=== PATIENT | male | born 1975 | race African-American/Black ===

== ENCOUNTER 2018-08-30 21:40 | Emergency (ER) | payer OTHER ==
[~2018-08-30] VITALS: Ht 180.3 cm; Wt 87.1 kg
[~2018-08-30 21:40] MED LIST: ACYCLOVIR800 MG ORAL; CLONAZEPAM2 MG PO; COMPLERA TABLE1 EACH ORAL; NORCO 5-325 TA1 EACH ORAL; OFLOXACIN5 ML RIGHT EYE
[2018-08-30] MEDS ORDERED: LEXAPRO20 MG ORAL (21:47)
--- NOTE | 2018-08-30 21:49 | NUR ---
ED Nurse Note: Pt from home, AAOx4, ambulatory, c/o tingling/numbness in hands and hips with tension headache 8/10 for a few weeks. Will assess and carry out ER MD's orders.
[2018-08-30 22:12] VITALS: BP 132/94
[2018-08-30 22:58] LABS: BASOPHILS % (AUTO) 0.9 % (0.0-2.0); EOSINOPHILS % (AUTO) 2.8 % (0.0-3.0); HEMATOCRIT 39.9 % (42.0-52.0); HEMOGLOBIN 13.4 G/DL (14.2-18.0); LYMPHOCYTES % (AUTO) 52.8 % (20.0-45.0); MEAN CORPUSCULAR VOLUME 87 FL (80-99); MONOCYTES % (AUTO) 9.9 % (1.0-10.0); NEUTROPHILS % (AUTO) 33.5 % (45.0-75.0); PLATELET COUNT 158 K/UL (150-450); RED BLOOD COUNT 4.58 M/UL (4.70-6.10); RED CELL DISTRIBUTION WIDTH 11.2 % (11.6-14.8); WHITE BLOOD COUNT 4.2 K/UL (4.8-10.8)
[2018-08-30 23:05] LABS: ANION GAP 5 mmol/L (5-15); BLOOD UREA NITROGEN 15 mg/dL (7-18); CALCIUM 9.2 MG/DL (8.5-10.1); CARBON DIOXIDE 28 MMOL/L (21-32); CHLORIDE 102 MMOL/L (98-107); CREATININE 1.2 MG/DL (0.55-1.30); POTASSIUM 3.7 MMOL/L (3.5-5.1); SODIUM 135 MMOL/L (136-145)
--- NOTE | 2018-08-30 23:44 | Emergency Room Report ---
History of Present Illness General Chief Complaint: Dizziness Source: Patient Present Illness HPI This is a 43-year-old male with a history of HIV and anxiety. He presents with chief complaint of numbness throughout his whole body. He has pressure numbness to the back of his head. Numbness to his arms, legs. There is been on and off for 2 weeks. Denies feeling anxious. No fever chills but no trauma. Nothing made it better. Nothing made it worse. Denies any other complaint. Allergies: Coded Allergies: NO KNOWN DRUG ALLERGIES (Verified Allergy, Unknown, 04/19/15) Patient History Past Medical History: see triage record, old chart reviewed Past Surgical History: none Pertinent Family History: none Social History: Denies: smoking Immunizations: other Reviewed Nursing Documentation: PMH: Agreed; PSxH: Agreed Nursing Documentation-PMH Past Medical History: No History, Except For Hx Gastrointestinal Problems: No - Colorectal wart removal in 2011 Hx Neurological Problems: No Review of Systems Eye: Denies: eye pain, blurred vision ENT: Denies: ear pain, nose congestion, throat swelling Respiratory: Denies: cough, shortness of breath Cardiovascular: Denies: chest pain, palpitations Gastrointestinal: Denies: abdominal pain, diarrhea, nausea, vomiting Musculoskeletal: Denies: back pain, joint pain Skin: Denies: rash Neurological: Reports: paresthesia; Denies: headache, numbness Endocrine: Denies: increased thirst, increased urine Hematologic/Lymphatic: Denies: easy bruising All Other Systems: negative except mentioned in HPI Physical Exam Vital Signs Date Time Temp Pulse Resp B/P (MAP) Pulse Ox O2 Delivery O2 Flow Rate FiO2 08/30/18 21:41 98.2 70 14 127/85 (99) 97 Room Air Vitals normal Sp02 EP Interpretation: reviewed, normal General Appearance: well appearing, no apparent distress, alert Head: normocephalic, atraumatic Eyes: bilateral eye PERRL, bilateral eye EOMI ENT: hearing grossly normal, normal pharynx Neck: full range of motion, supple, no meningismus Respiratory: chest non-tender, lungs clear, normal breath sounds Cardiovascular #1: regular rate, rhythm, no murmur Gastrointestinal: normal bowel sounds, non tender, no mass, no organomegaly, no bruit, non-distended Musculoskeletal: back normal, gait/station normal, normal range of motion Psychiatric: mood/affect normal Skin: warm/dry Medical Decision Making Diagnostic Impression: Primary Impression: Dizziness of unknown cause Additional Impression: Paresthesia ER Course Presents with paresthesia. This may be anxiety related. This may be secondary to his HIV medication or HIV itself. He looks well. Will discharge home. No evidence of TIA or CVA. Last Vital Signs Date Time Temp Pulse Resp B/P (MAP) Pulse Ox O2 Delivery O2 Flow Rate FiO2 08/30/18 22:12 98.2 63 14 132/94 100 Room Air Status: unchanged Disposition: HOME, SELF-CARE Condition: Stable Referrals: NON PHYSICIAN (PCP) Additional Instructions: Aloe up with your doctor in 7 days. You may need a referral to see a neurologist if not better. Return if worse. Kris Hagen MD Aug 30, 2018 23:44
--- NOTE | 2018-08-30 23:51 | NUR ---
ED Nurse Note: Pt cleared by health care Provider for discharge. DC instructions/prescription was given and explained to pt and verbalized understanding of teachings. All medical deviecs such as ID band removed. Pt is AAO x4, ambulatory and left with all personal belongings.
== END 2018-08-30 23:51 | disposition home or self-care (01) ==
LOC: EMR 23:00
DX: R20.2 Paresthesia of skin (principal); R42 Dizziness and giddiness; B20 Human immunodeficiency virus [HIV] disease; F41.9 Anxiety disorder, unspecified
CPT/HCPCS: 36415; 80048; 85025; 99283

== ENCOUNTER 2019-05-02 08:57 | Emergency (ER) | payer OTHER ==
[~2019-05-02] VITALS: Ht 180.3 cm; Wt 86.2 kg
[~2019-05-02 08:57] MED LIST changes: +LEXAPRO20 MG ORAL
--- NOTE | 2019-05-02 09:04 | NUR ---
ED Nurse Note: Pt ambulated to ed c/o chest pain and cough since thursday. per pt had x2 vomting episodes since Thursday. Pt was provided mask, NAD noted, vss. pt placed in gown. pt voices concern for possible pneumonia.
[2019-05-02 09:06] VITALS: BP 118/72
[2019-05-02] MEDS ORDERED: Albuterol ud Inhalation HHN ONE (09:15)
--- NOTE | 2019-05-02 09:16 | NUR ---
ED Nurse Note: FLU SWAB OBTAINED; SENT TO LAB
--- NOTE | 2019-05-02 09:28 | Emergency Room Report ---
History of Present Illness General Chief Complaint: Upper Respiratory Illness Source: Patient Present Illness HPI Patient is a 43-year-old male past medical history of HIV on antiretrovirals states that he has an undetectable viral load and CD4 count is normal as well as pneumonia in the past who presents to the ER complaining of cough and chest wall pain for the past 2 days. He denies any fever or chills. He denies any shortness of breath. He denies any recent travel or sick contacts. Patient states that he sometimes smokes cigarettes. No family history of early cardiovascular disease. No pain when not coughing. Denies any rash or altered mental status. Denies any abdominal pain, nausea or vomiting. Patient states this feels like when he had pneumonia. Allergies: Coded Allergies: NO KNOWN DRUG ALLERGIES (Verified Allergy, Unknown, 04/19/15) Patient History Past Medical History: other - HIV Social History: Reports: smoking Reviewed Nursing Documentation: PSxH: Agreed Nursing Documentation-PMH Past Medical History: No History, Except For Hx Gastrointestinal Problems: No - Colorectal wart removal in 2011 Hx Neurological Problems: No Review of Systems All Other Systems: negative except mentioned in HPI Physical Exam Vital Signs Date Time Temp Pulse Resp B/P (MAP) Pulse Ox O2 Delivery O2 Flow Rate FiO2 05/02/19 08:59 99.0 105 20 118/72 (87) 96 Room Air Sp02 EP Interpretation: reviewed, normal General Appearance: no apparent distress, alert, GCS 15, non-toxic Head: normocephalic, atraumatic Eyes: bilateral eye normal inspection, bilateral eye PERRL ENT: hearing grossly normal, normal pharynx, no angioedema, normal voice Neck: full range of motion, supple/symm/no masses Respiratory: chest non-tender, speaking full sentences, wheezing - scattered Cardiovascular #1: regular rate, rhythm, no edema Cardiovascular #2: 2+ radial (R), 2+ radial (L) Gastrointestinal: normal bowel sounds, non tender, soft, non-distended, no guarding, no rebound Rectal: deferred Genitourinary: normal inspection, no CVA tenderness Musculoskeletal: back normal, normal range of motion, calf tenderness, gait/ station normal, non-tender Neurologic: alert, motor strength/tone normal, oriented x3, sensory intact, responsive, speech normal Psychiatric: judgement/insight normal, memory normal, mood/affect normal, no suicidal/homicidal ideation Reflexes: 3+ bicep (R), 3+ bicep (L), 3+ tricep (R), 3+ tricep (L), 3+ knee (R) , 3+ knee (L) Lymphatic: no adenopathy Medical Decision Making Diagnostic Impression: Primary Impression: Bronchopneumonia ER Course Patient's vital signs are stable. He is in no acute respiratory distress. Patient given albuterol nebulizer treatment as well as Motrin. Influenza negative. Patient has history of HIV. Patient given prescription for Motrin, albuterol and azithromycin. After discussing risks and benefits of further diagnostics, treatment plans, as well as indications for and risks of admission , the patient is agreeable to being discharged home. I have explained that their evaluation and treatment in the emergency department today is an important step towards them achieving better health but that their evaluation today is not intended to replace further evaluation and treatment by a physician in their local clinic. I have explained that while the current findings suggest no immediate life threatening emergency they will require further evaluation and treatment by a physician of their choice in their area. They understand that it will be necessary for them to review the final reports of their ED visit with their clinic physician. We have reviewed indications for return to the Emergency Department. I have explained that additional time may need to pass and/or additional testing as an outpatient may be necessary before a definitive diagnosis can be made. They tell me they are willing to follow up as instructed within the timeframe I recommend. They appear to understand what we discussed. Additionally they understand that if they are unable to be seen by an outpatient physician they are welcome, and in fact should, return to the Emergency Department for a repeat evaluation. The patient is stable at time of discharge. EKG Diagnostic Results EKG Time: 09:11 EP Interpretation: Tammi Goldsmith MD Rate: normal Rhythm: NSR ST Segments: no acute changes ASA given to the pt in ED: No Last Vital Signs Date Time Temp Pulse Resp B/P (MAP) Pulse Ox O2 Delivery O2 Flow Rate FiO2 05/02/19 09:06 99.0 105 20 118/72 96 Room Air Disposition: HOME, SELF-CARE Condition: Stable Scripts Azithromycin* (ZITHROMAX*) 250 Mg Tablet 250 MG ORAL DAILY, #6 TAB 0 Refills Take two tables once daily for 1 day, then one tablet once daily for 4 days. Prov: Tammi Goldsmith M.D. 05/02/19 Ibuprofen* (MOTRIN*) 600 Mg Tablet 600 MG ORAL Q8H PRN for For Pain, #30 TAB 0 Refills Prov: Tammi Goldsmith M.D. 05/02/19 Albuterol Sulfate* (ALBUTEROL SULFATE MDI*) 8.5 Gm Hfa.aer.ad 2 PUFF INH Q4H PRN for cough/wheezing, #1 EA 0 Refills Prov: Tammi Goldsmith M.D. 05/02/19 Tammi Goldsmith M.D. May 02, 2019 09:28
--- NOTE | 2019-05-02 09:32 | NUR ---
ED Nurse Note: XRAY AT BEDSIDE
--- NOTE | 2019-05-02 09:38 | NUR ---
ED Nurse Note: RT AT BEDSIDE
[2019-05-02] MEDS ORDERED: ZITHROMAX250 MG ORAL (10:31)
[2019-05-02] MEDS ORDERED: ALBUTEROL SULF8.5 GM INH (10:31)
[2019-05-02] MEDS ORDERED: IBUPROFEN600 MG ORAL (10:31)
[2019-05-02 10:45] VITALS: BP 121/79
--- NOTE | 2019-05-02 10:46 | NUR ---
ER DISCHARGE NOTE: Patient is cleared to be discharged per ERMD, pt is aox4, on room air, with stable vital signs. pt was given dc and prescription instructions, pt was able to verbalize understanding, pt id band removed. pt is able to ambulate with steady gait. pt took all belongings.
--- NOTE | 2019-05-02 13:20 | Diagnostic Imaging Report ---
Indication: Dyspnea Comparison: 05/11/2005 A single view chest radiograph was obtained. Findings: Questionable small infiltrate in the left perihilar region. Heart size is normal. Costophrenic angles are sharp. Bones are unremarkable. IMPRESSION: Questionable small left perihilar infiltrate.
== END 2019-05-02 10:43 | disposition home or self-care (01) ==
LOC: EMR 09:15
DX: J18.0 Bronchopneumonia, unspecified organism (principal); B20 Human immunodeficiency virus [HIV] disease; F17.200 Nicotine dependence, unspecified, uncomplicated
CPT/HCPCS: 71045; 86710; 93005; Z7502; 99284

== ENCOUNTER 2019-05-13 07:44 | Emergency (ER) | payer OTHER ==
[~2019-05-13] VITALS: Ht 180.3 cm; Wt 86.2 kg
[~2019-05-13 07:44] MED LIST changes: +ALBUTEROL SULF8.5 GM INH; +IBUPROFEN600 MG ORAL; +ZITHROMAX250 MG ORAL
[2019-05-13 07:54] VITALS: BP 137/78
--- NOTE | 2019-05-13 08:05 | NUR ---
ED Nurse Note: PT. AAOX4. AMBULATORY. WALKED IN TO ER FROM HOME. PER PT. HE HAS BEEN HVAING FLANK PAIN BUT DENIES HEMATURIA. PT. DENIES HAVING DIFFICULTY URINATING.
[2019-05-13] MEDS ORDERED: Methocarbamol 750mg tab ORAL ONE (08:15)
[2019-05-13] MEDS ORDERED: Ketorolac 30mg Inj IM ONE (08:15)
[2019-05-13 08:30] LABS: APPEARANCE,URINE CLEAR; BILIRUBIN, URINE NEGATIVE (NEGATIVE); GLUCOSE, URINE (UA) NEGATIVE (NEGATIVE); KETONES,URINE 1+ (NEGATIVE); LEUKOCYTE ESTERASE ,URINE 1+ (NEGATIVE); NITRITE,URINE NEGATIVE (NEGATIVE); PH,URINE 5 (4.5-8.0); PROTEIN,URINE 1+ (NEGATIVE); UROBILINOGEN,URINE NORMAL MG/DL (0.0-1.0)
[2019-05-13 08:41] LABS: COLOR,URINE YELLOW
--- NOTE | 2019-05-13 08:53 | Emergency Room Report ---
History of Present Illness General Chief Complaint: Pain Source: Patient Present Illness HPI 43-year-old male presents ED for evaluation. Complaining of left lower back pain for last 4 days. Dull, 9 out of 10, nonradiating. Denies dysuria or hematuria. Denies fevers or chills. Denies nausea or vomiting. States he recently completed a prescription of antibiotics for pneumonia. Denies any cough. States he was moving some heavy furniture the other day. No other aggravating relieving factors. Denies any other associated symptoms Allergies: Coded Allergies: NO KNOWN DRUG ALLERGIES (Verified Allergy, Unknown, 04/19/15) Patient History Past Medical History: none Past Surgical History: none Pertinent Family History: none Social History: Denies: smoking, alcohol use, drug use Immunizations: UTD Reviewed Nursing Documentation: PMH: Agreed; PSxH: Agreed Nursing Documentation-PMH Past Medical History: No History, Except For Hx Gastrointestinal Problems: No - Colorectal wart removal in 2011 Hx Neurological Problems: No Review of Systems All Other Systems: negative except mentioned in HPI Physical Exam Vital Signs Date Time Temp Pulse Resp B/P (MAP) Pulse Ox O2 Delivery O2 Flow Rate FiO2 05/13/19 07:54 98.2 84 17 137/78 99 Room Air Sp02 EP Interpretation: reviewed, normal General Appearance: no apparent distress, alert, GCS 15, non-toxic Head: normocephalic, atraumatic Eyes: bilateral eye normal inspection, bilateral eye PERRL ENT: hearing grossly normal, normal pharynx, no angioedema, normal voice Neck: full range of motion, supple/symm/no masses Respiratory: chest non-tender, lungs clear, normal breath sounds, speaking full sentences Cardiovascular #1: regular rate, rhythm, no edema Cardiovascular #2: 2+ carotid (R), 2+ carotid (L), 2+ radial (R), 2+ radial (L) , 2+ dorsalis pedis (R), 2+ dorsalis pedis (L) Gastrointestinal: normal bowel sounds, non tender, soft, non-distended, no guarding, no rebound Rectal: deferred Genitourinary: normal inspection, CVA tenderness (L) Musculoskeletal: normal range of motion, gait/station normal, tender Neurologic: alert, motor strength/tone normal, oriented x3, sensory intact, responsive, speech normal Psychiatric: judgement/insight normal, memory normal, mood/affect normal, no suicidal/homicidal ideation Reflexes: 3+ bicep (R), 3+ bicep (L), 3+ tricep (R), 3+ tricep (L), 3+ knee (R) , 3+ knee (L) Skin: no rash Lymphatic: no adenopathy Medical Decision Making Diagnostic Impression: Primary Impression: Cystitis Additional Impression: Back pain Qualified Codes: M54.5 - Low back pain ER Course Hospital Course 43-year-old M presents to ED with L flank pain Differential diagnosis includes- muscle strain, kidney stone, pyelonephritis Clinical course Patient placed on stretcher. After initial history and physical I ordered UA, pain medications and CT scan Labs - UA - hematuria, some bacteria CT scan shows no evidence of kidney stone. no hydronephrosis. evidence of cystitis Upon reassessment, patient states pain has improved. I discussed findings with patient. Pain is likely muscular. However patient does have evidence of cystitis. Some bacteria and blood in urine with findings on CT. Will discharge home on antibiotics. Safe for discharge with close outpatient follow- up. States he has a PMD I feel this is a highly complex case requiring extensive working including EKG/ Rhythm strip, Xray/CT/US, Blood/urine lab work, repeat exams while in ED, and administration of strong opiates/narcotics for pain control, admission to hospital or close patient follow up. Diagnosis - cystitis, back pain Stable and discharged to home with Rx Motrin, Robaxin, Lidoderm, Keflex. Followup with PMD. Return to ED if symptoms recur or worsen Labs Test 05/13/19 08:08 Urine Color Yellow Urine Appearance Clear Urine pH 5 (4.5-8.0) Urine Specific [place] 1.025 (1.005-1.035) Urine Protein 1+ (NEGATIVE) Urine Glucose (UA) Negative (NEGATIVE) Urine Ketones 1+ (NEGATIVE) Urine Blood 4+ (NEGATIVE) Urine Nitrite Negative (NEGATIVE) Urine Bilirubin Negative (NEGATIVE) Urine Urobilinogen Normal MG/DL (0.0-1.0) Urine Leukocyte Esterase 1+ (NEGATIVE) Urine RBC 5-10 /HPF (0 - 0) Urine WBC 5-10 /HPF (0 - 0) Urine Squamous Epithelial Cells Few /LPF (NONE/OCC) Urine Bacteria Occasional /HPF (NONE) Urine Mucus Few /LPF (NONE/OCC) CT/MRI/US Diagnostic Results CT/MRI/US Diagnostic Results : Imaging Test Ordered: CT A/P Impression Findings: No renal or ureteral calculi, hydronephrosis, or hydroureter demonstrated. Lack of IV contrast limits assessment of the renal parenchyma. The left kidney demonstrates a lower pole low-attenuation lesion which is too small to characterize, best appreciated on the coronal images.. There is equivocal minimal bladder wall thickening, but this probably an artifact of under distention. Lack of IV contrast limits assessment of the other solid organs. The liver, gallbladder, bile ducts, pancreas, spleen, adrenals are unremarkable. There are 2 accessory splenules incidentally noted. No retroperitoneal or mesenteric mass or adenopathy. No pelvic mass or adenopathy. No evidence of colonic diverticulosis or diverticulitis. The appendix is normal. No small bowel distention. There is a tiny umbilical hernia contains only fat. The distal esophagus, stomach, duodenum are unremarkable. Included lung bases are clear. The bones are unremarkable. Impression: Equivocally minimally thick-walled bladder, probably an artifact of under distention, but could indicate mild cystitis changes Otherwise, no evidence of urinary stone disease, hydronephrosis, hydroureter, or other findings to suggest etiology stated clinical history of hematuria Subcentimeter low-attenuation lower pole left renal lesion, too small to characterize, most likely benign simple cortical cysts. No further follow-up necessary Incidental findings as noted, including tiny fat-containing umbilical hernia, accessory splenules The CT scanner at [facility] is accredited by the [employer] and the scans are performed using protocols designed to limit radiation exposure to as low as reasonably achievable to attain images of sufficient resolution adequate for diagnostic evaluation. Last Vital Signs Date Time Temp Pulse Resp B/P (MAP) Pulse Ox O2 Delivery O2 Flow Rate FiO2 05/13/19 07:54 98.2 84 17 137/78 (97) 99 05/13/19 07:54 Room Air Status: improved Disposition: HOME, SELF-CARE Condition: Stable Scripts Cephalexin* (KEFLEX*) 500 Mg Capsule 500 MG ORAL EVERY 6 HOURS for 7 Days, #28 CAP Prov: Brandin Berkowitz MD 05/13/19 Lidocaine Patch* (Lidoderm Patch*) 1 Each Adh..patch 1 PATCH TOPIC DAILY, #7 PATCH 0 Refills Patch(es) may remain in place for up to 12 hours in any 24-hour period. Prov: Brandin Berkowitz MD 05/13/19 Methocarbamol* (ROBAXIN-750*) 750 Mg Tablet 750 MG PO TID, #21 TAB 0 Refills Prov: Brandin Berkowitz MD 05/13/19 Ibuprofen* (MOTRIN*) 600 Mg Tablet 600 MG ORAL Q8H PRN for For Pain, #30 TAB 0 Refills Prov: Brandin Berkowitz MD 05/13/19 Referrals: NON PHYSICIAN (PCP) Brandin Berkowitz MD May 13, 2019 08:53
--- NOTE | 2019-05-13 08:55 | NUR ---
ED Nurse Note: pt went to CT
--- NOTE | 2019-05-13 09:15 | NUR ---
ED Nurse Note: pt. came back from CT and stated his pain is much better
--- NOTE | 2019-05-13 10:01 | Diagnostic Imaging Report ---
. Indication: Flank pain and hematuria Technique: Spiral acquisitions obtained through the abdomen and pelvis. No oral or IV contrast utilized, per urinary stone protocol. Multiplanar reconstructions were generated. Total dose length product 330 mGycm. CTDIvol(s) 6 mGy. Dose reduction achieved using automated exposure control Comparison: none Findings: No renal or ureteral calculi, hydronephrosis, or hydroureter demonstrated. Lack of IV contrast limits assessment of the renal parenchyma. The left kidney demonstrates a lower pole low-attenuation lesion which is too small to characterize, best appreciated on the coronal images.. There is equivocal minimal bladder wall thickening, but this probably an artifact of under distention. Lack of IV contrast limits assessment of the other solid organs. The liver, gallbladder, bile ducts, pancreas, spleen, adrenals are unremarkable. There are 2 accessory splenules incidentally noted. No retroperitoneal or mesenteric mass or adenopathy. No pelvic mass or adenopathy. No evidence of colonic diverticulosis or diverticulitis. The appendix is normal. No small bowel distention. There is a tiny umbilical hernia contains only fat. The distal esophagus, stomach, duodenum are unremarkable. Included lung bases are clear. The bones are unremarkable. Impression: Equivocally minimally thick-walled bladder, probably an artifact of under distention, but could indicate mild cystitis changes Otherwise, no evidence of urinary stone disease, hydronephrosis, hydroureter, or other findings to suggest etiology stated clinical history of hematuria Subcentimeter low-attenuation lower pole left renal lesion, too small to characterize, most likely benign simple cortical cysts. No further follow-up necessary Incidental findings as noted, including tiny fat-containing umbilical hernia, accessory splenules The CT scanner at [facility] is accredited by the [employer] and the scans are performed using protocols designed to limit radiation exposure to as low as reasonably achievable to attain images of sufficient resolution adequate for diagnostic evaluation.
[2019-05-13 10:05] VITALS: BP 124/75
--- NOTE | 2019-05-13 10:06 | NUR ---
ED Nurse Note: pt. is asleep with no s/s of acute distress noted
--- NOTE | 2019-05-13 10:17 | NUR ---
ED Nurse Note: Dr. Mederos at the bedside
[2019-05-13] MEDS ORDERED: CEPHALEXIN500 MG ORAL (10:20)
[2019-05-13] MEDS ORDERED: LIDODERM700 M1 TOPIC (10:20)
[2019-05-13] MEDS ORDERED: IBUPROFEN600 MG ORAL (10:20)
[2019-05-13] MEDS ORDERED: ROBAXIN-750750 MG PO (10:20)
[2019-05-13 10:28] VITALS: BP 128/60
== END 2019-05-13 10:28 | disposition home or self-care (01) ==
LOC: EMR 08:40
DX: N30.90 Cystitis, unspecified without hematuria (principal); M54.5 Low back pain
CPT/HCPCS: 74176; 81003; 96372; J1885; Z7502; 99284

== ENCOUNTER 2019-06-24 16:31 | Inpatient (IN) | payer OTHER ==
[~2019-06-24] VITALS: Ht 180.3 cm; Wt 84.8 kg
--- NOTE | 2019-06-24 16:26 | NUR ---
ED Nurse Note: Patient walked in [facility] c/o sever cough, SOB, fever. Stated had fever of 103.5 at home, took Tylenol. Patient's temp 99.5 at triage. Patient presented calm, AAO x4, VSS at this time. Per patient he was here at [facility] ER 1 month ago for pneumonia.
[2019-06-24 16:31] VITALS: BP 102/65
[~2019-06-24 16:31] MED LIST changes: +CEPHALEXIN500 MG ORAL; +LIDODERM700 M1 TOPIC; +ROBAXIN-750750 MG PO
--- NOTE | 2019-06-24 16:31 | NUR ---
ED Nurse Note: Per pt, he was tested for Cov[facility], awaiting result.
--- NOTE | 2019-06-24 16:42 | NUR ---
ED Nurse Note: Iv line established. Blood and urine specimen collected and sent to lab.
[2019-06-24] MEDS ORDERED: Albuterol 90mcg Inhaler 8gm INH PRN (16:45)
--- NOTE | 2019-06-24 16:55 | NUR ---
ED Nurse Note: Xray at bedside.
--- NOTE | 2019-06-24 17:26 | Diagnostic Imaging Report ---
EXAM: XR Chest, 1 View CLINICAL HISTORY: COUGH TECHNIQUE: Frontal view of the chest. COMPARISON: May 02, 2019. FINDINGS: Lungs: Consolidative process in the right upper lobe. Pleural space: Unremarkable. No pneumothorax. Heart: Unremarkable. No cardiomegaly. Mediastinum: Unremarkable. Bones/joints: Unremarkable. IMPRESSION: Right upper lobe pneumonia. Recommend short-term followup to ensure resolution.
[2019-06-24 17:27] LABS: BASOPHILS % (AUTO) 1.1 % (0.0-2.0); EOSINOPHILS % (AUTO) 0.1 % (0.0-3.0); HEMATOCRIT 33.6 % (42.0-52.0); HEMOGLOBIN 10.8 G/DL (14.2-18.0); LYMPHOCYTES % (AUTO) 7.8 % (20.0-45.0); MEAN CORPUSCULAR VOLUME 94 FL (80-99); MONOCYTES % (AUTO) 6.1 % (1.0-10.0); NEUTROPHILS % (AUTO) 84.9 % (45.0-75.0); PLATELET COUNT 309 K/UL (150-450); RED BLOOD COUNT 3.58 M/UL (4.70-6.10); RED CELL DISTRIBUTION WIDTH 13.1 % (11.6-14.8); WHITE BLOOD COUNT 16.8 K/UL (4.8-10.8)
[2019-06-24] MEDS ORDERED: KLONOPIN0.5 MG ORAL (17:27)
[2019-06-24] MEDS ORDERED: BIKTARVY 50-201 EACH PO (17:27)
[2019-06-24 17:33] LABS: APPEARANCE,URINE SLIGHTLY CLOUDY; BILIRUBIN, URINE NEGATIVE (NEGATIVE); COLOR,URINE YELLOW; GLUCOSE, URINE (UA) NEGATIVE (NEGATIVE); KETONES,URINE 1+ (NEGATIVE); LEUKOCYTE ESTERASE ,URINE 2+ (NEGATIVE); NITRITE,URINE NEGATIVE (NEGATIVE); PH,URINE 5 (4.5-8.0); PROTEIN,URINE 2+ (NEGATIVE); UROBILINOGEN,URINE NORMAL MG/DL (0.0-1.0)
[2019-06-24] MEDS ORDERED: Azithromycin 250mg tab ORAL ONE (18:00)
[2019-06-24] MEDS ORDERED: cefTRIAXone 1 GM in NS 55 ML IVPB ONE (18:00)
--- NOTE | 2019-06-24 18:21 | Emergency Room Report ---
History of Present Illness General Chief Complaint: Upper Respiratory Illness Present Illness HPI 44-year-old male with history of HIV, currently taking all his medication and up -to-date with his visits with his infectious disease doctor, here complaining of 5 days of fever, cough, shortness of breath. Patient reports that 2 days ago he went to the [facility] and went through drive-through and got tested for coronavirus. Pending results. Patient appears to be in distress, however is afebrile right now and oxygenation is within normal limits. Reports that his temperature was 103 F before coming in today and he took a Tylenol. Complains of chest pain, palpitation, shortness of breath at this time. Patient sitting on the floor complains of being in distress and feeling achiness all over. Denies recent travel. Denies abdominal pain, nausea vomiting diarrhea. (Kami Wing) Allergies: Coded Allergies: NO KNOWN DRUG ALLERGIES (Verified Allergy, Unknown, 04/19/15) COVID-19 Screening Contact w/high risk pt: No Recent Travel to affected area: No Experienced COVID-19 symptoms?: Yes COVID-19 symptoms experienced: Fever (T>100.4F or >38C), Shortness of Breath, Cough (Kami Wing) Patient History Past Medical History: see triage record Past Surgical History: none Pertinent Family History: none Reviewed Nursing Documentation: PMH: Agreed; PSxH: Agreed (Kami Wing) Nursing Documentation-PMH Hx Gastrointestinal Problems: No - Colorectal wart removal in 2011 Hx Neurological Problems: No (Kami Wing) Review of Systems All Other Systems: negative except mentioned in HPI (Kami Wing) Physical Exam Vital Signs Date Time Temp Pulse Resp B/P (MAP) Pulse Ox O2 Delivery O2 Flow Rate FiO2 06/24/19 16:17 99.1 116 18 102/65 (77) 96 Room Air Sp02 EP Interpretation: reviewed, normal General Appearance: alert, mild distress Head: normocephalic, atraumatic ENT: normal ENT inspection, normal pharynx Neck: supple Respiratory: crackles - Right upper lobe Cardiovascular #1: no edema, no murmur Gastrointestinal: non tender, soft Rectal: deferred Genitourinary: no CVA tenderness Musculoskeletal: back normal Neurologic: alert, motor strength/tone normal, oriented x3, sensory intact, responsive, speech normal Psychiatric: judgement/insight normal, memory normal, mood/affect normal, no suicidal/homicidal ideation Skin: no rash Lymphatic: no adenopathy (Kami Wing) Medical Decision Making PA Attestation All diagnoses and treatment plans were reviewed and discussed with my supervising physician Dr. Brock (Kami Wing) Diagnostic Impression: Primary Impression: Pneumonia Additional Impression: Suspected COVID-19 virus infection ER Course 44-year-old male with history of HIV, currently taking all his medication and up -to-date with his visits with his infectious disease doctor, here complaining of 5 days of fever, cough, shortness of breath. Patient reports that 2 days ago he went to the [facility] and went through drive-through and got tested for coronavirus. Pending results. Patient appears to be in distress, however is afebrile right now and oxygenation is within normal limits. Reports that his temperature was 103 F before coming in today and he took a Tylenol. Complains of chest pain, palpitation, shortness of breath at this time. Patient sitting on the floor complains of being in distress and feeling achiness all over. Denies recent travel. Denies abdominal pain, nausea vomiting diarrhea. Ddx considered but are not limited to: Coronavirus pneumonia, bronchitis, PNA, URI viral, bacterial brochitis Vital signs: are WNL, pt. is afebrile H&PE are most consistent with: Community-acquired pneumonia possible rule out of coronavirus ORDERS: CBC, CMP, UA, chest x-ray, EKG, ED INTERVENTIONS: NS bolus, albuterol MDI At this time no coronavirus testing needed as patient had a done at the [facility] with pending results 2 days ago. Patient was admitted with diagnosis of pneumonia most likely secondary to coronavirus to Dr. Lema under supervision of : Vinod pt stable at time of admission (Kami Wing) ER Course Patient seen and examined by my PA. Findings discussed chest x-ray review and patient's plan discussed in detail and I agree with her plan. Plan to admit for IV antibiotics and observation. (Luis Brock M.D.) EKG Diagnostic Results Rate: tachycardiac ST Segments: no acute changes Other Impression No acute ST changes (Kami Wing) Chest X-Ray Diagnostic Results Chest X-Ray Diagnostic Results : Chest X-Ray Ordered: Yes # of Views/Limited/Complete: 1 View Indication: Shortness of Breath EP Interpretation: Yes PA Xray: Interpretation reviewed, by supervising MD, and agrees with findings. Interpretation: other - Infiltrates noted on right upper lobe Impression: Other - Pneumonia right upper lobe Electronically Signed by: Kami West PA-C (Kami Wing) Last Vital Signs Date Time Temp Pulse Resp B/P (MAP) Pulse Ox O2 Delivery O2 Flow Rate FiO2 06/24/19 16:17 99.1 116 18 102/65 (77) 96 Room Air (Kami Wing) Disposition: ADMITTED INPATIENT Condition: Stable Kami Wing Jun 24, 2019 18:21 Luis Brock M.D. Jun 24, 2019 18:29
[2019-06-24 18:27] LABS: CHLORIDE 97 MMOL/L (98-107); SODIUM 135 MMOL/L (136-145)
[2019-06-24 18:28] LABS: ANION GAP 12 mmol/L (5-15); BLOOD UREA NITROGEN 21 mg/dL (7-18); CALCIUM 9.9 MG/DL (8.5-10.1); CARBON DIOXIDE 26 MMOL/L (21-32); CREATININE 1.9 MG/DL (0.55-1.30)
[2019-06-24 18:30] VITALS: BP 112/69
[2019-06-24 18:36] LABS: ALANINE AMINOTRANSFERASE 24 U/L (12-78); ALBUMIN 3.2 G/DL (3.4-5.0); ALBUMIN/GLOBULIN RATIO 0.6 (1.0-2.7); ALKALINE PHOSPHATASE 86 U/L (46-116); ASPARTATE AMINO TRANSFERASE 21 U/L (15-37); BILIRUBIN,TOTAL 0.7 MG/DL (0.2-1.0)
[2019-06-24] MEDS ORDERED: Methocarbamol 750mg tab ORAL PRN (20:30)
--- NOTE | 2019-06-24 21:10 | NUR ---
Alexei santoro in EDM - 06/24/19 at 2128 by SHERO ED Nurse Note: SPOKE WITH ENZO, BROTHER WAS LISTED EMERGENCY CONTACT , MELODY (SISTER) -
[2019-06-24] MEDS: Heparin 5000 units/ml inj SUBQ SCH (22:00)
[2019-06-24] MEDS: clonazePAM 0.5mg tab ORAL SCH (22:00)
--- NOTE | 2019-06-24 22:00 | NUR ---
ED Nurse Note: Report given to Vinicio WINCHESTER.
[2019-06-24 22:25] VITALS: BP 115/73
--- NOTE | 2019-06-24 22:25 | NUR ---
TRANSFER TO FLOOR: Patient transferred to Tele. Report given to Vinicio. Alert and oriented x4, verbally responsive. Not in any ditress. Sinus rhythm. IV line on left AC 20g patent and intact. Med recon done, swabs are sent. No skin issues. All belongings sent with the patient.
--- NOTE | 2019-06-24 22:27 | NUR ---
NURSE NOTES: Received pt from Rae Hernandez RN. Pt transported via gurney. Pt aox4, no c/o respiratory distress. IV site intact and patent. Bed locked in lowest position, call light within reach. school bus monitor placed on pt, vitals taken. Oriented pt to room and unit. Droplet and contact precautions implemented. Will contact MD for admission orders.
[2019-06-25] VITALS: BP 113/67
[2019-06-25] MEDS: clonazePAM 0.5mg tab ORAL SCH ×3 (04:14→10:41)
--- NOTE | 2019-06-25 07:18 | NUR ---
HAND-OFF: Report given to ANNABELLA Mora. Pt is awake and resting in bed in no acute distress. Endorsed plan of care.
--- NOTE | 2019-06-25 07:30 | NUR ---
NURSE NOTES: Received patient from Hayley Mendoza. Patient is AAOx4. Patient is laying comfortably in bed. No complain of pain or discomfort at this time. Noted with non productive cough. VSS. Dr. Gonzalez on the floor seen and examined patient . Fall precautions maintained. call john within patients reach. will continue plan of care.
[2019-06-25 07:33] LABS: ANION GAP 11 mmol/L (5-15); BLOOD UREA NITROGEN 18 mg/dL (7-18); CALCIUM 9.4 MG/DL (8.5-10.1); CARBON DIOXIDE 26 MMOL/L (21-32); CHLORIDE 104 MMOL/L (98-107); CREATININE 1.5 MG/DL (0.55-1.30); POTASSIUM 3.7 MMOL/L (3.5-5.1); SODIUM 140 MMOL/L (136-145)
[2019-06-25 07:38] LABS: ALANINE AMINOTRANSFERASE 24 U/L (12-78); ALBUMIN 2.7 G/DL (3.4-5.0); ALBUMIN/GLOBULIN RATIO 0.5 (1.0-2.7); ALKALINE PHOSPHATASE 100 U/L (46-116); ASPARTATE AMINO TRANSFERASE 19 U/L (15-37); BILIRUBIN,TOTAL 0.4 MG/DL (0.2-1.0)
[2019-06-25 07:39] LABS: HEMATOCRIT 32.3 % (42.0-52.0); HEMOGLOBIN 10.8 G/DL (14.2-18.0); MEAN CORPUSCULAR VOLUME 90 FL (80-99); PLATELET COUNT 304 K/UL (150-450); RED BLOOD COUNT 3.58 M/UL (4.70-6.10); RED CELL DISTRIBUTION WIDTH 11.5 % (11.6-14.8); WHITE BLOOD COUNT 18.1 K/UL (4.8-10.8)
[2019-06-25 08:00] VITALS: BP 116/65
[2019-06-25] MEDS: guaiFENesin w/Codeine 5ml Liq ud ORAL PRN ×2 (08:46→21:56)
[2019-06-25] MEDS: Heparin 5000 units/ml inj SUBQ SCH ×2 (08:47→21:00)
--- NOTE | 2019-06-25 09:00 | History and Physical Report ---
DATE OF ADMISSION: 06/24/2019 CHIEF COMPLAINT: Pneumonia, fevers, and cough. HISTORY OF PRESENT ILLNESS: The patient is a 44-year-old male. He has a history of HIV, has had cough, congestion, fevers, and night sweats for the last several days. He apparently went for a test at an outside testing center for COVID. He has no results back yet. Because of continued chest pain, he presented to the ER. On evaluation there, he had a temperature of 99.8. His vital signs were otherwise stable. Chest x-ray showed a right upper lobe pneumonia. The patient is now admitted for further evaluation. PAST MEDICAL HISTORY: As above. PAST SURGICAL HISTORY: Includes rectal surgery. CURRENT MEDICATIONS: Reconciled and reviewed. ALLERGIES: None. FAMILY HISTORY: None. SOCIAL HISTORY: Negative for tobacco, ethanol, or drugs. REVIEW OF SYSTEMS: Negative except for fevers, cough, and chest pain. PHYSICAL EXAMINATION: VITAL SIGNS: Temperature 98, pulse 112, respirations 22, and blood pressure 113/67. GENERAL: The patient is well-developed, no apparent distress. HEART: Regular rate and rhythm. LUNGS: Clear. ABDOMEN: Soft, nontender, nondistended. EXTREMITIES: Without clubbing, cyanosis, or edema. LABORATORY DATA: Labs showed a white count of 18,000. Sodium was 135, potassium was 4, creatinine was 1.9. ASSESSMENT: This is a pleasant male with history of HIV admitted with complaints of fevers, cough, congestion secondary to pneumonia, cannot rule out COVID. PLAN: IV antibiotics for pneumonia. Check sputum cultures. We will order a CT scan of the chest. We will repeat his COVID test. Tru Gonzalez M.D. DR: GAEL JOB#: [id number] CC:
[2019-06-25] MEDS: Patient's Own Med - Biktarvy ORAL SCH (10:41)
[2019-06-25] MEDS: Vancomycin 1gm in D5W 275ml IVPB SCH ×3 (11:44)
[2019-06-25 11:50] VITALS: BP 111/71
--- NOTE | 2019-06-25 12:30 | NUR ---
NURSE NOTES: Covid 19 swab sent to the lab as per Dr. Gonzalez's order. Will follow.
[2019-06-25 16:00] VITALS: BP 120/75
[2019-06-25] MEDS: cefTRIAXone 1 GM in D5W 55 ML IVPB SCH (17:15)
--- NOTE | 2019-06-25 19:18 | NUR ---
HAND-OFF: Report given to Hayley Love. PLAn of care endorsed. .
--- NOTE | 2019-06-25 19:19 | NUR ---
NURSE NOTES: Got report from Abby WINCHESTER. Pt in stable condition. Denies any pain. No s/s of distress or discomfort noted. Pt resting in bed comfortably. Bed in low andl locked position, call light within reach, bedside table within reach. Continue to monitor.
[2019-06-25 20:00] VITALS: BP 153/75
[2019-06-25] MEDS: clonazePAM 0.5mg tab ORAL PRN (21:56)
[2019-06-26] VITALS (7 sets, daily range): BP systolic 110–156; BP diastolic 65–99
[2019-06-26] MEDS: Vancomycin 1gm in D5W 275ml IVPB SCH ×2 (00:21→08:13)
[2019-06-26] MEDS: guaiFENesin w/Codeine 5ml Liq ud ORAL PRN ×2 (06:05→21:53)
--- NOTE | 2019-06-26 07:23 | NUR ---
HAND-OFF: Report given to Toshia WINCHESTER.
--- NOTE | 2019-06-26 07:24 | NUR ---
NURSE NOTES: Received report from ANNABELLA Love. Patient in bed resting, no active s/s cardiac, respiratory distress noticed at this time. Patient AOx4, on room air, denies pain at this time. IV on left AC 20G, asymptomatic, patent, intact. Endorsed CT chest scheduled. Bed in lowest position, side rails upx2, call light within reach. Will continue to monitor.
[2019-06-26] MEDS: Ascorbic Acid 500mg tab ORAL SCH (08:12)
[2019-06-26] MEDS: Patient's Own Med - Biktarvy ORAL SCH (08:13)
[2019-06-26] MEDS: Zinc Sulfate 220mg cap ORAL SCH (08:20)
[2019-06-26] MEDS: Heparin 5000 units/ml inj SUBQ SCH ×2 (08:30→21:15)
[2019-06-26] MEDS ORDERED: Zinc Sulfate 220mg cap ORAL SCH (09:00)
--- NOTE | 2019-06-26 11:18 | General Progress Note ---
Assessment/Plan Problem List: (1) HIV (human immunodeficiency virus infection) ICD Codes: B20 - Human immunodeficiency virus [HIV] disease SNOMED: 05647434 (2) Bronchopneumonia ICD Codes: J18.0 - Bronchopneumonia, unspecified organism SNOMED: 093388465 (3) Pneumonia ICD Codes: J18.9 - Pneumonia, unspecified organism SNOMED: 110419913 (4) Suspected COVID-19 virus infection ICD Codes: R68.89 - Other general symptoms and signs SNOMED: 116230385 Status: stable Assessment/Plan: Continue current treatment with IV antibiotics. Check a CT scan of the chest. ID consult is currently pending. We will send a QuantiFERON gold. Defer isolation status to infectious disease continuous improvement consultant. Patient will continue on his HIV. Continue oxygen and breathing treatments as needed. Subjective Constitutional: Reports: malaise, weakness HEENT: Reports: no symptoms Cardiovascular: Reports: no symptoms Respiratory: Reports: cough Gastrointestinal/Abdominal: Reports: no symptoms Genitourinary: Reports: no symptoms Neurologic/Psychiatric: Reports: no symptoms Endocrine: Reports: no symptoms Hematologic/Lymphatic: Reports: no symptoms Allergies: Coded Allergies: NO KNOWN DRUG ALLERGIES (Verified Allergy, Unknown, 04/19/15) All Systems: reviewed and negative except above Subjective There were no overnight events. Patient continues to complain of cough. He showed me a email from his coronavirus testing 2 days ago done at the [facility]. he is in fact negative for coronavirus. He does not feel any better though. Remains on IV antibiotics. Continues to have cough malaise and weakness. Objective Last 24 Hour Vital Signs Date Time Temp Pulse Resp B/P (MAP) Pulse Ox O2 Delivery O2 Flow Rate FiO2 06/26/19 09:00 Room Air 06/26/19 08:00 97.0 97 18 123/69 (87) 97 06/26/19 08:00 74 06/26/19 04:00 97.0 93 18 110/69 (83) 95 06/26/19 04:00 90 06/26/19 03:36 97.9 06/26/19 00:00 93 06/26/19 00:00 97.9 90 18 133/70 (91) 96 06/25/19 21:00 Room Air 06/25/19 20:11 90 20 96 Room Air 21 06/25/19 20:00 90 06/25/19 20:00 97.7 93 18 153/75 (101) 95 06/25/19 16:00 98.1 100 18 120/75 (90) 100 06/25/19 16:00 86 06/25/19 12:00 97 06/25/19 11:50 99.0 100 18 111/71 (84) 98 Intake and Output 06/25/19 06/26/19 19:00 07:00 Intake Total 500 ml Balance 500 ml Intake Oral 500 ml # Voids 4 5 Laboratory Tests 06/25/19 22:35: Vancomycin Level Trough 7.4 Height (Feet): 5 Height (Inches): 11.00 Weight (Pounds): 196 General Appearance: WD/WN Neck: supple Cardiovascular: regular rhythm Respiratory/Chest: lungs clear Abdomen: normal bowel sounds, non tender, soft, no organomegaly Edema: no edema noted Arm (L), no edema noted Arm (R), no edema noted Leg (L), no edema noted Leg (R), no edema noted Pedal (L), no edema noted Pedal (R), no edema noted Generalized Tru Gonzalez MD Jun 26, 2019 11:18
--- NOTE | 2019-06-26 12:15 | NUR ---
NURSE NOTES: Per Dr. Gonzalez, since COVID test from outside of hospital resulted as negative, need to do CT. CT department called and informed negative result from outside source, requesting for CT.
--- NOTE | 2019-06-26 12:52 | Diagnostic Imaging Report ---
Clinical Indication: Chest pain and shortness of breath Technique: Spiral acquisitions obtained through the chest. No IV contrast utilized, per referring physician request. Multiplanar reconstructions generated. Total dose length product 295 mGycm. CTDIvol(s) 6.7 mGy. Dose reduction achieved using automated exposure control Comparison: none Findings: There is very dense consolidation involving most of the right upper lobe. There are some air bronchograms. Surrounding it is a trace smaller area of less dense hazy opacity. Minimal hazy opacities also seen in the superior segment of the right lower lobe. The right middle lobe is clear. There is some dependent atelectatic change posteriorly in the right lower lobe. The left lower lobe demonstrates some ill-defined hazy opacity posteriorly without dense consolidation or focal abnormality. Similar hazy opacity is seen within the posterior right upper lobe. The pleural spaces are clear. The heart is minimally enlarged. No pericardial effusion. There are prominent but not frankly enlarged paratracheal lymph nodes. The thyroid is unremarkable. The esophagus is unremarkable. No axillary or chest wall mass or adenopathy. The included upper abdominal anatomy is unremarkable except for 2 small accessory splenules. The bones are unremarkable. Impression: Dense right upper lobe consolidation, presumably indicating pneumonia. Hazy opacities elsewhere bilaterally. These are nonspecific, could represent areas of pulmonary edema versus more diffuse infectious process, but other possibility Mild cardiomegaly The CT scanner at [facility] is accredited by the [employer] and the scans are performed using protocols designed to limit radiation exposure to as low as reasonably achievable to attain images of sufficient resolution adequate for diagnostic evaluation.
--- NOTE | 2019-06-26 13:30 | NUR ---
NURSE NOTES: Dr. Gonzalez made aware CT chest taken, patient requesting generalized pain med other than Tylenol. Per Md, [place] 10mg q4h, prn. Order noted, entered, carried out. Will continue to monitor.
[2019-06-26] MEDS: HYDROcodone/Acetamin 10/325 tab ORAL PRN ×2 (13:53→21:53)
[2019-06-26] MEDS: Azithromycin 250mg tab ORAL SCH (16:00)
--- NOTE | 2019-06-26 17:00 | Consultation ---
DATE OF CONSULTATION: 06/26/2019 INFECTIOUS DISEASES CONSULTATION This consult is for coverage of Dr. Alas. CONSULTING PHYSICIAN: Aneudy Batista MD PRIMARY ATTENDING PHYSICIAN: Tru Gonzalez MD REASON FOR CONSULTATION: Pneumonia, HIV. HISTORY OF PRESENT ILLNESS: The patient is a 44-year-old male admitted on 06/24/2019 complaining of cough, shortness of breath, fevers for 5 days. Two days prior to today of admission, the patient had coronavirus testing in [place] drive-through testing center. At the day of admission, had temperature 103, palpitation, chest pain, shortness of breath. PAST MEDICAL HISTORY: Significant for HIV since 1999, for HIV taking Biktarvy at home. Last CD4 count is more than 500. ALLERGIES: No known drug allergies. MEDICATIONS: Logan, multivitamin, vitamin C, zinc, vancomycin, ceftriaxone, clonazepam, Protonix, sodium chloride, albuterol, Zofran. SOCIAL HISTORY: Single on SSI. Denies alcohol, drug abuse, or smoking. No sick contacts. VACCINATION HISTORY: Does not have flu vaccine and pneumonia vaccine. Says flu vaccine make him sick. REVIEW OF SYSTEMS: No significant fever today. He has dry cough coughing, yesterday the coughing got more productive. No nausea. No vomiting. No diarrhea. No problem passing urine. PHYSICAL EXAMINATION: VITAL SIGNS: Temperature 98.2, pulse 80, blood pressure 118/65. GENERAL APPEARANCE: No acute distress, well developed. HEAD AND NECK: Shambaugh conjunctiva. HEART: Normal rate. LUNGS: Clear. ABDOMEN: Soft, nontender. EXTREMITIES: No edema. LABORATORY AND DIAGNOSTIC DATA: WBC 18.1, hemoglobin 10.8, hematocrit 32.3, platelet 304. Sodium 140, potassium 3.7, chloride 104, bicarb 26, BUN 18, creatinine 1.5, glucose 122. The patient had a CT scan of the chest today showed right upper lobe pneumonia with consolidation, air bronchogram, healing nondisplaced fracture of the left 12th rib. LFTs within normal limit except albumin that is 2.7. Coronavirus test from [facility] is negative. Our hospital coronavirus test is pending. IMPRESSION: 1. Pneumonia. 2. HIV. 3. Anemia. 4. Acute renal failure. RECOMMENDATIONS: Discontinue vancomycin. Continue ceftriaxone, add azithromycin. We will follow up the culture. So far urine culture is negative. At the end of my exam, I thank Dr. Gonzalez for involving me in care of this patient. Aneudy Batista M.D. DR: Kelin JOB#: [id number] CC: APWAN
[2019-06-26] MEDS: cefTRIAXone 1 GM in D5W 55 ML IVPB SCH (17:34)
--- NOTE | 2019-06-26 19:38 | NUR ---
HAND-OFF: Report given to ANNABELLA Ferrara. Endorsed plan of care.
--- NOTE | 2019-06-26 20:00 | NUR ---
NURSE NOTES: Received patient from Hayley Mora. Patient is AAOx4.On room air, noted tachypneic at rate of 38/min. Patient is lying in semi fowlers, raised hob to ease respiratory sob, but persists.Notified MD Gonzalez re sob, tachypnea. No complain of pain or discomfort at this time, just sob. Noted with non productive cough. Call light in reach. bed in locked and lowest position. Will continue to monitor respiratory status Addendum: 06/26/19 at 2337 by Anusha Orozco RN received report from Toshia
[2019-06-26] MEDS ORDERED: LORazepam Inj 2mg/ml 1ml IV PRN (22:15)
[2019-06-27] VITALS (7 sets, daily range): BP systolic 125–146; BP diastolic 76–95
[2019-06-27] MEDS: clonazePAM 0.5mg tab ORAL PRN (00:43)
[2019-06-27] MEDS: HYDROcodone/Acetamin 10/325 tab ORAL PRN ×3 (05:53→19:51)
[2019-06-27] MEDS: guaiFENesin w/Codeine 5ml Liq ud ORAL PRN ×3 (05:53→23:03)
--- NOTE | 2019-06-27 07:45 | NUR ---
HAND-OFF: Report given to ANNABELLA Mandujano.
--- NOTE | 2019-06-27 09:00 | NUR ---
NURSE NOTES: PATIENT STABLE, AOXR. COMPLAINING OF 8/10 PAIN. NO S/SX OF DISTRESS. RR EVEN AND UNLABORED ON RA WITH DRY COUGH. SIDE RAILS UPX2, CALL LIGHT WITHIN REACH, BED LOW AND LOCKED. WILL CONTINUE TO MONITOR.
[2019-06-27] MEDS: Azithromycin 250mg tab ORAL SCH (09:53)
[2019-06-27] MEDS: Zinc Sulfate 220mg cap ORAL SCH (09:54)
[2019-06-27] MEDS: Ascorbic Acid 500mg tab ORAL SCH (09:54)
[2019-06-27] MEDS: Patient's Own Med - Biktarvy ORAL SCH (09:55)
[2019-06-27] MEDS: Heparin 5000 units/ml inj SUBQ SCH ×3 (09:56→21:14)
--- NOTE | 2019-06-27 10:12 | General Progress Note ---
Assessment/Plan Problem List: (1) HIV (human immunodeficiency virus infection) ICD Codes: B20 - Human immunodeficiency virus [HIV] disease SNOMED: 71674183 (2) Bronchopneumonia ICD Codes: J18.0 - Bronchopneumonia, unspecified organism SNOMED: 015206427 (3) Pneumonia ICD Codes: J18.9 - Pneumonia, unspecified organism SNOMED: 964455394 (4) Suspected COVID-19 virus infection ICD Codes: R68.89 - Other general symptoms and signs SNOMED: 212431718 Status: stable Assessment/Plan: Continue current treatment with IV antibiotics. CT scan of the chest reviewed. ID consult appreciated. isolation status deffered to infectious disease information resource consultant. Patient will continue on his HIV meds. Continue oxygen and breathing treatments as needed. Subjective ROS Limited/Unobtainable: No Constitutional: Reports: no symptoms HEENT: Reports: no symptoms Cardiovascular: Reports: chest pain Respiratory: Reports: cough, shortness of breath Gastrointestinal/Abdominal: Reports: no symptoms Genitourinary: Reports: no symptoms Neurologic/Psychiatric: Reports: no symptoms Endocrine: Reports: no symptoms Hematologic/Lymphatic: Reports: no symptoms Allergies: Coded Allergies: NO KNOWN DRUG ALLERGIES (Verified Allergy, Unknown, 04/19/15) All Systems: reviewed and negative except above Subjective covid-[address] with RULpna. c/o sob. no fevers. on iv abx. Id appreciated Objective Last 24 Hour Vital Signs Date Time Temp Pulse Resp B/P (MAP) Pulse Ox O2 Delivery O2 Flow Rate FiO2 06/27/19 08:00 96.4 79 22 131/86 (101) 97 06/27/19 06:23 97.9 06/27/19 04:00 79 06/27/19 04:00 97.7 80 36 141/78 (99) 96 06/27/19 00:00 97.9 84 32 129/76 (93) 93 06/27/19 00:00 83 06/26/19 22:36 98.1 83 38 137/77 (97) 97 06/26/19 21:00 Room Air 06/26/19 20:03 79 20 95 Room Air 21 06/26/19 20:00 98.2 83 40 156/99 (118) 94 06/26/19 20:00 84 06/26/19 16:00 97.8 83 18 139/82 (101) 95 06/26/19 16:00 81 06/26/19 12:00 98.2 97 18 118/65 (82) 97 06/26/19 12:00 80 Intake and Output 06/26/19 06/27/19 19:00 07:00 Intake Total 575 ml 900 ml Balance 575 ml 900 ml Intake Oral 500 ml IV Total 75 ml 900 ml # Voids 2 4 Height (Feet): 5 Height (Inches): 11.00 Weight (Pounds): 196 General Appearance: WD/WN, alert Neck: supple Cardiovascular: normal rate, regular rhythm Respiratory/Chest: chest wall non-tender, lungs clear, normal breath sounds, no respiratory distress Abdomen: normal bowel sounds, non tender, soft, no organomegaly Edema: no edema noted Arm (L), no edema noted Arm (R), no edema noted Leg (L), no edema noted Leg (R), no edema noted Pedal (L), no edema noted Pedal (R), no edema noted Generalized Tru Gonzalez MD Jun 27, 2019 10:12
--- NOTE | 2019-06-27 10:59 | NUR ---
HAND-OFF: Report given to JIM BARLOW LVN.
--- NOTE | 2019-06-27 11:06 | NUR ---
*-* INSURANCE *-* ALL AVAILABLE CLINICALS HAVE BEEN FAXED TO: [employer] # [phone] FAX#[phone] REVIEWS/CLINICALS
--- NOTE | 2019-06-27 11:30 | NUR ---
NURSE NOTES: Received report from ANNABELLA Orozco. Patient in bed calm and comfortable, no hosp gown on, stated that he is hot. no acute s/s cardio-respiratory distress noticed at this time. Patient A/A/Ox4, on room air, denies pain at this time. IV site on left AC 20G, asymptomatic, patent, intact. Bed in lowest position, siderails are upx2, brakes engaged and locked. call light within reach. Will continue to monitor.
--- NOTE | 2019-06-27 11:32 | NUR ---
CASE MANAGEMENT:REVIEW 44 YR OLD MALE WALKED IN TO ER CC: SOB, COUGH AND FEVER 100.4 PMH: PNEUMONIA 1 MONTH AGO SI: PNEUMONIA. R/O COVID 19 99.8 116 18 102/65 96% ON RA WBC+16.8 IS: 1L NS BOLUS IV ROCEPHIN AZITHROMYCIN URINE CX CHEST XRAY : ADMITTED TO TELEMETRY 06/26/19 SI: PNEUMONIA. R/O COVID 19 97.0 97 18 123/69 97% ON RA IS: IV ROCEPHIN Q24 AZITHROMAX PO QD ZINC PO QD VIT C PO QD IVF@75/HR : TELEMETRY STATUS PLAN: CT CHEST 06/27/19 SI: PNEUMONIA. COVID 19 NOT DETECTED 96.4 79 22 131/86 97% ON RA IS: IV ROCEPHIN Q24 AZITHROMAX PO QD ZINC PO QD VIT C PO QD IVF@75/HR : TELEMETRY STATUS PLAN: CT CHEST(+) BILATERAL HAZY OPACITIES
--- NOTE | 2019-06-27 13:20 | Infectious Diseases Prog Note ---
Assessment/Plan Assessment/Plan IMPRESSION: 1. Pneumonia.COVID19 X 2: negative 2. HIV. 3. Anemia. 4. Acute renal failure. RECOMMENDATIONS: Continue ceftriaxone, add azithromycin. We will follow up CBC & BMP Subjective ROS Limited/Unobtainable: No Constitutional: Reports: anorexia Respiratory: Reports: dry cough Cardiovascular: Reports: no symptoms Gastrointestinal/Abdominal: Reports: no symptoms Genitourinary: Reports: no symptoms Allergies: Coded Allergies: NO KNOWN DRUG ALLERGIES (Verified Allergy, Unknown, 04/19/15) Objective Vital Signs Last 24 Hour Vital Signs Date Time Temp Pulse Resp B/P (MAP) Pulse Ox O2 Delivery O2 Flow Rate FiO2 06/27/19 12:00 98.1 82 20 125/79 (94) 99 06/27/19 09:00 Room Air 06/27/19 08:00 96.4 79 22 131/86 (101) 97 06/27/19 08:00 77 06/27/19 06:23 97.9 06/27/19 04:00 79 06/27/19 04:00 97.7 80 36 141/78 (99) 96 06/27/19 00:00 97.9 84 32 129/76 (93) 93 06/27/19 00:00 83 06/26/19 22:36 98.1 83 38 137/77 (97) 97 06/26/19 21:00 Room Air 06/26/19 20:03 79 20 95 Room Air 21 06/26/19 20:00 98.2 83 40 156/99 (118) 94 06/26/19 20:00 84 06/26/19 16:00 97.8 83 18 139/82 (101) 95 06/26/19 16:00 81 Height (Feet): 5 Height (Inches): 11.00 Weight (Pounds): 196 General Appearance: no acute distress HEENT: mucous membranes moist Respiratory/Chest: lungs clear Cardiovascular: normal rate Abdomen: soft, non tender Extremities: no edema Neurologic/Psychiatric: alert, oriented x 3, responsive Microbiology Date/Time Source Procedure Growth Status 06/25/19 12:25 Nasopharynx Coronavirus COVID-19 PCR ([facility]) - Final Complete 06/24/19 17:07 Urine,Clean Catch Urine Culture - Final NO GROWTH AFTER 48 HOURS Complete Current Medications Medications (Trade) Dose Ordered Sig/Tory Route PRN Reason Start Time Stop Time Status Last Admin Dose Admin Acetaminophen (Tylenol) 650 mg Q4H PRN ORAL Mild Pain (Pain Scale 1-3) 06/24/19 20:30 07/24/19 20:29 06/26/19 03:05 Acetaminophen (Tylenol) 650 mg Q4H PRN ORAL Temp >100.5 06/25/19 02:15 07/25/19 02:14 Acetaminophen/ Hydrocodone Bitart ([place] 10/325) 1 tab Q4H PRN ORAL For Pain (4-10) 06/26/19 13:45 07/03/19 13:44 06/27/19 09:54 Albuterol Sulfate (Proventil MDI) 2 puff Q4H PRN INH Shortness of Breath 06/24/19 16:45 09/22/19 16:44 06/24/19 17:21 Ascorbic Acid (Vitamin C) 1,000 mg DAILY ORAL 06/26/19 09:00 07/26/19 08:59 06/27/19 09:54 Azithromycin (Zithromax) 500 mg DAILY ORAL 06/26/19 15:48 07/03/19 15:47 06/27/19 09:53 Ceftriaxone Sodium 1 gm/ Dextrose 55 ml @ 110 mls/hr Q24H IVPB 06/25/19 18:00 07/02/19 17:59 06/26/19 17:34 Clonazepam (KlonoPIN) 0.5 mg Q6H PRN ORAL anxiety 06/25/19 11:00 07/01/19 21:59 06/27/19 00:43 Guaifenesin/ Codeine Phosphate (Robitussin with codeine) 5 ml Q6H PRN ORAL For Cough 06/25/19 08:15 07/25/19 08:14 06/27/19 05:53 Heparin Sodium (Porcine) (Heparin 5000 units/ml) 5,000 units EVERY 12 HOURS SUBQ 06/24/19 22:00 08/08/19 21:59 06/27/19 09:56 Lorazepam (Ativan 2mg/ml 1ml) 1 mg QIDPRN PRN IV For Anxiety 06/26/19 22:15 07/03/19 22:14 Methocarbamol (Robaxin) 750 mg TID PRN ORAL Muscle Spasm 06/24/19 20:30 07/24/19 20:29 06/26/19 03:06 Multivitamins (Multivitamins) 1 tab DAILY ORAL 06/26/19 09:00 07/26/19 08:59 06/27/19 09:53 Ondansetron HCl (Zofran) 4 mg Q6H PRN IVP Nausea & Vomiting 06/24/19 20:30 07/24/19 20:29 06/26/19 03:06 Pantoprazole (Protonix) 40 mg DAILY@0630 ORAL 06/25/19 06:30 07/25/19 06:29 06/27/19 05:53 Patient Own Medication (Patient's Own Med) 1 ea DAILY ORAL 06/25/19 11:00 07/25/19 10:59 06/27/19 09:55 Sodium Chloride 1,000 ml @ 75 mls/hr [id number] IV 06/24/19 22:00 07/24/19 21:59 06/26/19 21:55 Zinc Sulfate (Zinc Sulfate) 220 mg DAILY ORAL 06/26/19 09:00 09/24/19 08:59 06/27/19 09:54 Aneudy Batista MD Jun 27, 2019 13:20
[2019-06-27] MEDS: cefTRIAXone 1 GM in D5W 55 ML IVPB SCH (18:01)
[2019-06-27] MEDS: Albuterol ud Inhalation HHN SCH (18:14)
[2019-06-27] MEDS ORDERED: Albuterol ud Inhalation HHN PRN (18:15)
--- NOTE | 2019-06-27 19:13 | NUR ---
HAND-OFF: Report given to Temi.
--- NOTE | 2019-06-27 19:14 | NUR ---
NURSE NOTES: able to obtain orders for klonopin and robitussin from Dr. Gonzalez. Patient received HHN and now stable upon transferring to [facility]. personal belongings noted.
--- NOTE | 2019-06-27 19:20 | NUR ---
NURSE NOTES: Received report from ANNABELLA Armas 2E nurse. Patient alert, oriented, bed in low position, locked, side rails up x3, call light within reach. VSS. IV in LFA. Will continue to monitor.
--- NOTE | 2019-06-27 19:40 | NUR ---
NURSE NOTES: Patient eating dinner, gets SOB at end of sentences. O2Sat 93%, RT called to give treatment.
[2019-06-28] VITALS: BP 133/90
[2019-06-28] MEDS: Albuterol ud Inhalation HHN SCH ×4 (00:33→19:43)
[2019-06-28] MEDS: guaiFENesin w/Codeine 5ml Liq ud ORAL PRN ×3 (05:42→19:57)
[2019-06-28 05:53] VITALS: BP 137/87
[2019-06-28 06:37] LABS: BASOPHILS % (AUTO) 0.9 % (0.0-2.0); EOSINOPHILS % (AUTO) 0.8 % (0.0-3.0); HEMATOCRIT 31.5 % (42.0-52.0); HEMOGLOBIN 10.4 G/DL (14.2-18.0); LYMPHOCYTES % (AUTO) 38.2 % (20.0-45.0); MEAN CORPUSCULAR VOLUME 91 FL (80-99); MONOCYTES % (AUTO) 9.2 % (1.0-10.0); NEUTROPHILS % (AUTO) 50.9 % (45.0-75.0); PLATELET COUNT 474 K/UL (150-450); RED BLOOD COUNT 3.48 M/UL (4.70-6.10); RED CELL DISTRIBUTION WIDTH 11.9 % (11.6-14.8); WHITE BLOOD COUNT 7.2 K/UL (4.8-10.8)
[2019-06-28 06:58] LABS: ANION GAP 8 mmol/L (5-15); BLOOD UREA NITROGEN 11 mg/dL (7-18); CALCIUM 9.5 MG/DL (8.5-10.1); CARBON DIOXIDE 29 MMOL/L (21-32); CHLORIDE 104 MMOL/L (98-107); CREATININE 1.3 MG/DL (0.55-1.30); SODIUM 141 MMOL/L (136-145)
--- NOTE | 2019-06-28 07:25 | NUR ---
HAND-OFF: Report given to ANNABELLA Biswas and ANNABELLA Marina. Rounds done. Patient eating breakfast. No distress noted.
[2019-06-28 08:00] VITALS: BP 119/69
[2019-06-28] MEDS: Zinc Sulfate 220mg cap ORAL SCH (08:41)
[2019-06-28] MEDS: Azithromycin 250mg tab ORAL SCH (08:41)
[2019-06-28] MEDS: Ascorbic Acid 500mg tab ORAL SCH (08:41)
[2019-06-28] MEDS: HYDROcodone/Acetamin 10/325 tab ORAL PRN ×3 (08:42→21:08)
[2019-06-28] MEDS: Heparin 5000 units/ml inj SUBQ SCH ×2 (08:45→20:42)
[2019-06-28] MEDS: Patient's Own Med - Biktarvy ORAL SCH (08:47)
--- NOTE | 2019-06-28 09:36 | NUR ---
NURSE NOTES: Received handoff from DENVER WINCHESTER. Patient is awake and alert, no distress noted. Left forearm IV is patent and symptomatic, running IVF as ordered. Bed is in low and locked position, side rails up x2, call light is within reach.
--- NOTE | 2019-06-28 11:26 | Infectious Diseases Prog Note ---
Assessment/Plan Assessment/Plan antibiotics : ceftriaxone, azithromycin A 1. pneumonia COVID 19 negative 2. leucocytosis improving 3. renal failure improving 4. HIV P 1. continue ceftriaxone, azithromycin 2. sputum culture 3. will follow up cultures Subjective Respiratory: Reports: shortness of breath, productive cough Gastrointestinal/Abdominal: Reports: nausea; Denies: vomiting, diarrhea Musculoskeletal: Reports: pain Allergies: Coded Allergies: NO KNOWN DRUG ALLERGIES (Verified Allergy, Unknown, 04/19/15) Objective Vital Signs Last 24 Hour Vital Signs Date Time Temp Pulse Resp B/P (MAP) Pulse Ox O2 Delivery O2 Flow Rate FiO2 06/28/19 09:00 Room Air Room Air 06/28/19 08:00 97.5 92 20 119/69 (86) 96 06/28/19 05:53 98.8 79 22 137/87 (104) 99 06/28/19 00:33 70 18 99 Room Air 21 67 18 98 06/28/19 00:00 97.9 84 18 133/90 (104) 94 06/27/19 21:00 Room Air 06/27/19 20:00 98.3 90 18 140/88 (105) 93 06/27/19 19:35 98.6 94 21 139/86 (103) 93 06/27/19 19:10 73 20 99 Room Air 21 06/27/19 18:14 73 18 99 Room Air 21 71 18 98 06/27/19 16:43 98.6 73 18 146/95 (112) 96 06/27/19 16:00 69 06/27/19 12:00 82 06/27/19 12:00 78 06/27/19 12:00 98.1 82 20 125/79 (94) 99 06/27/19 12:00 74 Height (Feet): 5 Height (Inches): 11.00 Weight (Pounds): 196 Respiratory/Chest: lungs clear Cardiovascular: normal rate, regular rhythm, no gallop/murmur Abdomen: soft, non tender Extremities: no edema Microbiology Date/Time Source Procedure Growth Status 06/25/19 12:25 Nasopharynx Coronavirus COVID-19 PCR ([facility]) - Final Complete Laboratory Tests Test 06/28/19 05:05 White Blood Count 7.2 K/UL (4.8-10.8) Red Blood Count 3.48 M/UL (4.70-6.10) L Hemoglobin 10.4 G/DL (14.2-18.0) L Hematocrit 31.5 % (42.0-52.0) L Mean Corpuscular Volume 91 FL (80-99) Mean Corpuscular Hemoglobin 29.8 PG (27.0-31.0) Mean Corpuscular Hemoglobin Concent 32.9 G/DL (32.0-36.0) Red Cell Distribution Width 11.9 % (11.6-14.8) Platelet Count 474 K/UL (150-450) H Mean Platelet Volume 6.1 FL (6.5-10.1) L Neutrophils (%) (Auto) 50.9 % (45.0-75.0) Lymphocytes (%) (Auto) 38.2 % (20.0-45.0) Monocytes (%) (Auto) 9.2 % (1.0-10.0) Eosinophils (%) (Auto) 0.8 % (0.0-3.0) Basophils (%) (Auto) 0.9 % (0.0-2.0) Sodium Level 141 MMOL/L (136-145) Potassium Level 4.0 MMOL/L (3.5-5.1) Chloride Level 104 MMOL/L (98-107) Carbon Dioxide Level 29 MMOL/L (21-32) Anion Gap 8 mmol/L (5-15) Blood Urea Nitrogen 11 mg/dL (7-18) Creatinine 1.3 MG/DL (0.55-1.30) Estimat Glomerular Filtration Rate > 60 mL/min (>60) Glucose Level 89 MG/DL (74-106) Calcium Level 9.5 MG/DL (8.5-10.1) Current Medications Medications (Trade) Dose Ordered Sig/Tory Route PRN Reason Start Time Stop Time Status Last Admin Dose Admin Acetaminophen (Tylenol) 650 mg Q4H PRN ORAL Mild Pain (Pain Scale 1-3) 06/24/19 20:30 07/24/19 20:29 06/26/19 03:05 Acetaminophen (Tylenol) 650 mg Q4H PRN ORAL Temp >100.5 06/25/19 02:15 07/25/19 02:14 Acetaminophen/ Hydrocodone Bitart ([place] 10) 1 tab Q4H PRN ORAL For Pain (4-10) 06/26/19 13:45 07/03/19 13:44 06/28/19 08:42 Albuterol Sulfate (Proventil) 2.5 mg Q4H PRN HHN Shortness of Breath 06/27/19 18:15 07/02/19 18:14 Albuterol Sulfate (Proventil) 2.5 mg Q6HRT HHN 06/27/19 19:00 07/02/19 18:59 06/28/19 06:58 Ascorbic Acid (Vitamin C) 1,000 mg DAILY ORAL 06/26/19 09:00 07/26/19 08:59 06/28/19 08:41 Azithromycin (Zithromax) 500 mg DAILY ORAL 06/26/19 15:48 07/03/19 15:47 06/28/19 08:41 Ceftriaxone Sodium 1 gm/ Dextrose 55 ml @ 110 mls/hr Q24H IVPB 06/25/19 18:00 07/02/19 17:59 06/27/19 18:01 Clonazepam (KlonoPIN) 2 mg Q6H PRN ORAL anxiety 06/27/19 19:00 07/04/19 18:59 06/28/19 01:00 Guaifenesin/ Codeine Phosphate (Robitussin with codeine) 10 ml Q6H PRN ORAL For Cough 06/27/19 19:00 07/25/19 18:59 06/28/19 05:42 Heparin Sodium (Porcine) (Heparin 5000 units/ml) 5,000 units EVERY 12 HOURS SUBQ 06/24/19 22:00 08/08/19 21:59 06/27/19 09:56 Lorazepam (Ativan 2mg/ml 1ml) 1 mg QIDPRN PRN IV For Anxiety 06/26/19 22:15 07/03/19 22:14 Methocarbamol (Robaxin) 750 mg TID PRN ORAL Muscle Spasm 06/24/19 20:30 07/24/19 20:29 06/26/19 03:06 Multivitamins (Multivitamins) 1 tab DAILY ORAL 06/26/19 09:00 07/26/19 08:59 06/28/19 08:41 Ondansetron HCl (Zofran) 4 mg Q6H PRN IVP Nausea & Vomiting 06/24/19 20:30 07/24/19 20:29 06/26/19 03:06 Pantoprazole (Protonix) 40 mg DAILY@0630 ORAL 06/25/19 06:30 07/25/19 06:29 06/28/19 07:01 Patient Own Medication (Patient's Own Med) 1 ea DAILY ORAL 06/25/19 11:00 07/25/19 10:59 06/28/19 08:47 Sodium Chloride 1,000 ml @ 75 mls/hr [id number] IV 06/24/19 22:00 07/24/19 21:59 06/27/19 23:00 Zinc Sulfate (Zinc Sulfate) 220 mg DAILY ORAL 06/26/19 09:00 09/24/19 08:59 06/28/19 08:41 Hiro Alas MD Jun 28, 2019 11:26
[2019-06-28 12:00] VITALS: BP 134/93
--- NOTE | 2019-06-28 14:01 | NUR ---
CASE MANAGEMENT: REVIEW 06/28/19 SI: PNEUMONIA . UTI . HIV 98.2 77 20 134/93 95% ON RA H/H 10.4/31.5 PLT 474 IS: IV NS@75ML/HR IV ROCEPHIN Q24HR ZITHROMAX PO QD ROBITUSSIN PO Q6HR/PRN PROVENTIL HHN Q6HR PROTONIX PO QD KLONOPIN PO Q6HR/PRN HEPARIN SQ BID \: 3E MED SURG UNIT PLAN: COVID-19- NOT DETECTED OBTAIN OUTSIDE COVID-19 TEST RESULT INCENTIVE SPIROMETRY BEDSIDE TEACHING PATIENT STILL ACTIVE COUCH Q6HR CHEST PERCUSSION
--- NOTE | 2019-06-28 14:05 | NUR ---
*-* INSURANCE *-* ALL AVAILABLE CLINICALS HAVE BEEN FAXED TO: [employer] # [phone] FAX#[phone] REVIEWS/CLINICALS
--- NOTE | 2019-06-28 14:24 | NUR ---
CASE MANAGEMENT: NOTE OBTAINING SECOND COVID-[address] Magui NEWMAN ABOUT SECOND COVID-19 TEST; HE STATED TO ASK DR. IRIS SIMMONS Addendum: 06/28/19 at 1431 by ARTEMIO VALENCIA LVN PATIENT HAS RECORD IN HIS E-MAIL WILL ATTEMPT TO OBTAIN RECORD FOR CHART
--- NOTE | 2019-06-28 15:58 | General Progress Note ---
Assessment/Plan Problem List: (1) HIV (human immunodeficiency virus infection) ICD Codes: B20 - Human immunodeficiency virus [HIV] disease SNOMED: 58901539 (2) Bronchopneumonia ICD Codes: J18.0 - Bronchopneumonia, unspecified organism SNOMED: 939148258 (3) Pneumonia ICD Codes: J18.9 - Pneumonia, unspecified organism SNOMED: 977314310 (4) Suspected COVID-19 virus infection ICD Codes: R68.89 - Other general symptoms and signs SNOMED: 248816875 Status: stable Assessment/Plan: Continue current treatment with IV antibiotics. CT scan of the chest reviewed. ID consult appreciated. isolation status deffered to infectious disease sap bw consultant. Patient will continue on his HIV meds. Continue oxygen and breathing treatments as needed. Subjective ROS Limited/Unobtainable: No Constitutional: Reports: malaise, weakness HEENT: Reports: no symptoms Cardiovascular: Reports: no symptoms Respiratory: Reports: cough, SOB at rest Gastrointestinal/Abdominal: Reports: no symptoms Genitourinary: Reports: no symptoms Neurologic/Psychiatric: Reports: anxiety Endocrine: Reports: no symptoms Hematologic/Lymphatic: Reports: no symptoms Allergies: Coded Allergies: NO KNOWN DRUG ALLERGIES (Verified Allergy, Unknown, 04/19/15) All Systems: reviewed and negative except above Subjective intermittent sob. ct with RULpna. c/o sob. no fevers. on iv abx. Id appreciated Objective Last 24 Hour Vital Signs Date Time Temp Pulse Resp B/P (MAP) Pulse Ox O2 Delivery O2 Flow Rate FiO2 06/28/19 13:25 81 18 99 Room Air 21 79 16 97 06/28/19 12:00 98.2 77 20 134/93 (107) 95 06/28/19 09:00 Room Air 06/28/19 08:00 97.5 92 20 119/69 (86) 96 06/28/19 07:08 90 16 99 Room Air 21 86 16 96 06/28/19 05:53 98.8 79 22 137/87 (104) 99 06/28/19 00:33 70 18 99 Room Air 21 67 18 98 06/28/19 00:00 97.9 84 18 133/90 (104) 94 06/27/19 21:00 Room Air 06/27/19 20:00 98.3 90 18 140/88 (105) 93 06/27/19 19:35 98.6 94 21 139/86 (103) 93 06/27/19 19:10 73 20 99 Room Air 21 06/27/19 18:14 73 18 99 Room Air 21 71 18 98 06/27/19 16:43 98.6 73 18 146/95 (112) 96 06/27/19 16:00 69 Intake and Output 06/27/19 06/28/19 19:00 07:00 Intake Total 420 ml 1065 ml Balance 420 ml 1065 ml Intake Oral 120 ml 240 ml IV Total 300 ml 825 ml # Voids 2 2 Laboratory Tests 06/28/19 05:05: White Blood Count 7.2, Red Blood Count 3.48L, Hemoglobin 10.4L, Hematocrit 31.5L , Mean Corpuscular Volume 91, Mean Corpuscular Hemoglobin 29.8, Mean Corpuscular Hemoglobin Concent 32.9, Red Cell Distribution Width 11.9, Platelet Count 474H, Mean Platelet Volume 6.1L, Neutrophils (%) (Auto) 50.9, Lymphocytes (%) (Auto) 38.2, Monocytes (%) (Auto) 9.2, Eosinophils (%) (Auto) 0.8, Basophils (%) (Auto) 0.9, Sodium Level 141, Potassium Level 4.0, Chloride Level 104, Carbon Dioxide Level 29, Anion Gap 8, Blood Urea Nitrogen 11, Creatinine 1.3, Estimat Glomerular Filtration Rate > 60, Glucose Level 89, Calcium Level 9.5 Height (Feet): 5 Height (Inches): 11.00 Weight (Pounds): 196 Tru Gonzalez MD Jun 28, 2019 15:58
[2019-06-28 16:00] VITALS: BP 136/89
[2019-06-28] MEDS: cefTRIAXone 1 GM in D5W 55 ML IVPB SCH (17:46)
--- NOTE | 2019-06-28 19:00 | NUR ---
NURSE NOTES: Patient's pain managed with current pain regimen. Cough is slightly productive, patient was afebrile during shift.
--- NOTE | 2019-06-28 19:00 | NUR ---
NURSE NOTES: Received report from ANNABELLA Biswas. Pt is awake, lying semi-otero's; comfortably resting. No signs of acute distress noted. Pt denies any pain at this time. AOx4; able to make needs known. Checked IV site, line, and rate; patent and running. No erythema, bleeding, or infiltration noted. Bed at lowest position. Brakes on. Siderails up x2. Call light within reach. Will continue to monitor.
--- NOTE | 2019-06-28 19:22 | NUR ---
HAND-OFF: Report given to Renee WINCHESTER.
[2019-06-28 20:00] VITALS: BP 151/88
[2019-06-29] VITALS: BP 140/84
[2019-06-29] MEDS: Albuterol ud Inhalation HHN SCH ×5 (01:50→20:47)
[2019-06-29] MEDS: guaiFENesin w/Codeine 5ml Liq ud ORAL PRN ×2 (02:02→19:55)
[2019-06-29 04:00] VITALS: BP 139/89
[2019-06-29] MEDS: HYDROcodone/Acetamin 10/325 tab ORAL PRN ×3 (06:21→23:54)
--- NOTE | 2019-06-29 07:15 | NUR ---
HAND-OFF: Report given to ANNABELLA Cardenas. Pt is awake and in stable condition. Plan of care endorsed.
--- NOTE | 2019-06-29 07:45 | NUR ---
NURSE NOTES: Received report from ANNABELLA Duran. Pt is awake in bed comfortably. Pt A&Ox4, able to make needs known, No SOB or respiratory distress noted. Denies any pain at this time. IV intact and patent. Bed in lowest position and locked. Call light within reach. Will continue to monitor for.
[2019-06-29 08:00] VITALS: BP 126/82
[2019-06-29] MEDS: Zinc Sulfate 220mg cap ORAL SCH (08:33)
[2019-06-29] MEDS: Patient's Own Med - Biktarvy ORAL SCH (08:33)
[2019-06-29] MEDS: Azithromycin 250mg tab ORAL SCH (08:33)
[2019-06-29] MEDS: Ascorbic Acid 500mg tab ORAL SCH (08:33)
[2019-06-29] MEDS: Heparin 5000 units/ml inj SUBQ SCH ×3 (08:36→19:58)
--- NOTE | 2019-06-29 10:19 | NUR ---
CASE MANAGEMENT: REVIEW 06/29/19 SI: BRONCHOPNEUMONIA . UTI . HIV IMMUNODEFICIENCY 98.2 80 18 126/82 98% ON RA IS: IV NS@75ML/HR IV ROCEPHIN Q24HR ZITHROMAX PO QD ROBITUSSIN PO Q6HR/PRN PROVENTIL HHN Q6HR PROTONIX PO QD HEPARIN SQ BID PATIENTS OWN MEDS PO QD \: 3E MED SURG UNIT PLAN: COVID-19- NOT DETECTED OBTAIN OUTSIDE COVID-19 TEST RESULT INCENTIVE SPIROMETRY BEDSIDE TEACHING PATIENT STILL ACTIVE COUCH Q6HR CHEST PERCUSSION PATIENT TO CONT HIV MEDS WBC STABLE Addendum: 06/29/19 at 1046 by ARTEMIO VALENCIA LVN DCP: DC HOME WHEN STABLE
--- NOTE | 2019-06-29 11:25 | Infectious Diseases Prog Note ---
Assessment/Plan Assessment/Plan antibiotics : ceftriaxone, azithromycin A 1. pneumonia COVID 19 negative 4.07.10 2. leucocytosis improving 3. renal failure improving 4. HIV P 1. continue ceftriaxone, azithromycin 2. will follow up cultures Subjective Constitutional: Denies: fever, chills Respiratory: Reports: shortness of breath - decreased, dry cough - decreased Gastrointestinal/Abdominal: Reports: nausea; Denies: vomiting, diarrhea Musculoskeletal: Denies: pain Allergies: Coded Allergies: NO KNOWN DRUG ALLERGIES (Verified Allergy, Unknown, 04/19/15) Objective Vital Signs Last 24 Hour Vital Signs Date Time Temp Pulse Resp B/P (MAP) Pulse Ox O2 Delivery O2 Flow Rate FiO2 06/29/19 09:11 81 17 98 Room Air 21 80 16 96 06/29/19 09:00 Room Air Room Air 06/29/19 08:00 98.2 80 18 126/82 (97) 98 06/29/19 04:00 98.5 83 20 139/89 (106) 98 06/29/19 01:50 80 18 100 Room Air 21 82 16 97 06/29/19 00:00 98.4 83 18 140/84 (102) 97 06/28/19 21:00 Room Air Room Air 06/28/19 20:00 98.4 72 20 151/88 (109) 97 06/28/19 19:43 78 18 100 Room Air 21 76 16 98 06/28/19 16:00 98.7 90 20 136/89 (105) 96 06/28/19 13:25 81 18 99 Room Air 21 79 16 97 06/28/19 12:00 98.2 77 20 134/93 (107) 95 Height (Feet): 5 Height (Inches): 11.00 Weight (Pounds): 187 Respiratory/Chest: lungs clear Cardiovascular: normal rate, regular rhythm, no gallop/murmur Abdomen: soft, non tender Extremities: no edema Current Medications Medications (Trade) Dose Ordered Sig/Tory Route PRN Reason Start Time Stop Time Status Last Admin Dose Admin Acetaminophen (Tylenol) 650 mg Q4H PRN ORAL Mild Pain (Pain Scale 1-3) 06/24/19 20:30 07/24/19 20:29 06/26/19 03:05 Acetaminophen (Tylenol) 650 mg Q4H PRN ORAL Temp >100.5 06/25/19 02:15 5/4/20 02:14 Acetaminophen/ Hydrocodone Bitart ([place] 10/325) 1 tab Q4H PRN ORAL For Pain (4-10) 06/26/19 13:45 07/03/19 13:44 06/29/19 06:21 Albuterol Sulfate (Proventil) 2.5 mg Q4H PRN HHN Shortness of Breath 06/27/19 18:15 07/02/19 18:14 Albuterol Sulfate (Proventil) 2.5 mg Q6HRT HHN 06/27/19 19:00 07/02/19 18:59 06/29/19 07:00 Ascorbic Acid (Vitamin C) 1,000 mg DAILY ORAL 06/26/19 09:00 07/26/19 08:59 06/29/19 08:33 Azithromycin (Zithromax) 500 mg DAILY ORAL 06/26/19 15:48 07/03/19 15:47 06/29/19 08:33 Ceftriaxone Sodium 1 gm/ Dextrose 55 ml @ 110 mls/hr Q24H IVPB 06/25/19 18:00 07/02/19 17:59 06/28/19 17:46 Clonazepam (KlonoPIN) 2 mg Q6H PRN ORAL anxiety 06/27/19 19:00 07/04/19 18:59 06/28/19 23:39 Guaifenesin/ Codeine Phosphate (Robitussin with codeine) 10 ml Q6H PRN ORAL For Cough 06/27/19 19:00 07/25/19 18:59 06/29/19 02:02 Heparin Sodium (Porcine) (Heparin 5000 units/ml) 5,000 units EVERY 12 HOURS SUBQ 06/24/19 22:00 08/08/19 21:59 06/27/19 09:56 Lorazepam (Ativan 2mg/ml 1ml) 1 mg QIDPRN PRN IV For Anxiety 06/26/19 22:15 07/03/19 22:14 Methocarbamol (Robaxin) 750 mg TID PRN ORAL Muscle Spasm 06/24/19 20:30 07/24/19 20:29 06/26/19 03:06 Multivitamins (Multivitamins) 1 tab DAILY ORAL 06/26/19 09:00 07/26/19 08:59 06/29/19 08:33 Ondansetron HCl (Zofran) 4 mg Q6H PRN IVP Nausea & Vomiting 06/24/19 20:30 07/24/19 20:29 06/26/19 03:06 Pantoprazole (Protonix) 40 mg DAILY@0630 ORAL 06/25/19 06:30 07/25/19 06:29 06/29/19 06:13 Patient Own Medication (Patient's Own Med) 1 ea DAILY ORAL 06/25/19 11:00 07/25/19 10:59 06/29/19 08:33 Sodium Chloride 1,000 ml @ 75 mls/hr [id number] IV 06/24/19 22:00 07/24/19 21:59 06/29/19 06:15 Zinc Sulfate (Zinc Sulfate) 220 mg DAILY ORAL 06/26/19 09:00 09/24/19 08:59 06/29/19 08:33 Hiro Alas MD Jun 29, 2019 11:25
[2019-06-29 12:00] VITALS: BP 133/84
[2019-06-29 16:00] VITALS: BP 138/97
[2019-06-29] MEDS: cefTRIAXone 1 GM in D5W 55 ML IVPB SCH (17:39)
--- NOTE | 2019-06-29 19:35 | NUR ---
NURSE NOTES: Received report from ANNABELLA Cardenas. Pt is awake, lying semi-otero's; comfortably resting. No signs of acute distress noted. Pt denies any pain at this time. AOx4; able to make needs known. Checked IV site, line, and rate; patent and running. No infiltration, bleeding, or erythema noted. Bed at lowest position. Brakes on. Siderails up x2. Call light within reach. Will continue to monitor.
--- NOTE | 2019-06-29 19:54 | General Progress Note ---
Assessment/Plan Problem List: (1) HIV (human immunodeficiency virus infection) ICD Codes: B20 - Human immunodeficiency virus [HIV] disease SNOMED: 49037294 (2) Bronchopneumonia ICD Codes: J18.0 - Bronchopneumonia, unspecified organism SNOMED: 500957445 (3) Pneumonia ICD Codes: J18.9 - Pneumonia, unspecified organism SNOMED: 792955459 (4) Suspected COVID-19 virus infection ICD Codes: R68.89 - Other general symptoms and signs SNOMED: 036430077 Status: stable Assessment/Plan: Continue current treatment with IV antibiotics. CT scan of the chest reviewed. ID consult appreciated. isolation status deffered to infectious disease data consultant. Patient will continue on his HIV meds. Continue oxygen and breathing treatments as needed. repeat cxr Subjective ROS Limited/Unobtainable: No Constitutional: Reports: no symptoms HEENT: Reports: no symptoms Cardiovascular: Reports: no symptoms Respiratory: Reports: no symptoms Gastrointestinal/Abdominal: Reports: no symptoms Genitourinary: Reports: no symptoms Neurologic/Psychiatric: Reports: no symptoms Endocrine: Reports: no symptoms Hematologic/Lymphatic: Reports: no symptoms Allergies: Coded Allergies: NO KNOWN DRUG ALLERGIES (Verified Allergy, Unknown, 04/19/15) All Systems: reviewed and negative except above Subjective There are no overnight events. Patient without complaints. Remains on IV antibiotics. No fevers chills chest pain or shortness of breath. Objective Last 24 Hour Vital Signs Date Time Temp Pulse Resp B/P (MAP) Pulse Ox O2 Delivery O2 Flow Rate FiO2 06/29/19 16:00 98.4 77 18 138/97 (111) 97 06/29/19 12:18 98.5 06/29/19 12:00 98.5 82 18 133/84 (100) 97 06/29/19 09:11 81 17 98 Room Air 21 80 16 96 06/29/19 09:00 Room Air Room Air 06/29/19 08:00 98.2 80 18 126/82 (97) 98 06/29/19 04:00 98.5 83 20 139/89 (106) 98 06/29/19 01:50 80 18 100 Room Air 21 82 16 97 06/29/19 00:00 98.4 83 18 140/84 (102) 97 06/28/19 21:00 Room Air Room Air 06/28/19 20:00 98.4 72 20 151/88 (109) 97 Intake and Output 06/28/19 06/29/19 19:00 07:00 Intake Total 1180 ml 400 ml Balance 1180 ml 400 ml Intake Oral 300 ml 400 ml IV Total 880 ml # Voids 4 Height (Feet): 5 Height (Inches): 11.00 Weight (Pounds): 187 General Appearance: WD/WN, alert Neck: supple Cardiovascular: regular rhythm Respiratory/Chest: lungs clear Abdomen: normal bowel sounds, non tender, soft, no organomegaly Edema: no edema noted Arm (L), no edema noted Arm (R), no edema noted Leg (L), no edema noted Leg (R), no edema noted Pedal (L), no edema noted Pedal (R), no edema noted Generalized Tru Gonzalez MD Jun 29, 2019 19:54
--- NOTE | 2019-06-29 19:59 | NUR ---
HAND-OFF: Report given to ANNABELLA Duran.
[2019-06-29 20:00] VITALS: BP 155/97
[2019-06-30] VITALS: BP 141/96
[2019-06-30] MEDS: Albuterol ud Inhalation HHN SCH ×4 (01:20→20:00)
[2019-06-30 04:00] VITALS: BP 141/86
--- NOTE | 2019-06-30 07:18 | NUR ---
HAND-OFF: Report given to ANNABELLA Cardenas. Pt is awake and in stable condition. Plan of care endorsed.
--- NOTE | 2019-06-30 07:56 | NUR ---
NURSE NOTES: Received report from ANNABELLA Duran. Pt is awake in bed comfortably. Pt A&Ox4, able to make needs known, No SOB. Denies any pain at this time. IV intact and patent. CXR scheduled today for cough. Bed in lowest position and locked. Call light within reach. Will continue to monitor for.
[2019-06-30 08:00] VITALS: BP 119/73
[2019-06-30] MEDS: Patient's Own Med - Biktarvy ORAL SCH (08:35)
[2019-06-30] MEDS: Zinc Sulfate 220mg cap ORAL SCH (08:35)
[2019-06-30] MEDS: Heparin 5000 units/ml inj SUBQ SCH ×2 (08:35→20:59)
[2019-06-30] MEDS: Azithromycin 250mg tab ORAL SCH (08:35)
[2019-06-30] MEDS: Ascorbic Acid 500mg tab ORAL SCH (08:35)
--- NOTE | 2019-06-30 09:52 | NUR ---
*-* INSURANCE *-* ALL AVAILABLE CLINICALS HAVE BEEN FAXED TO: [employer] [facility] # [phone] FAX#[phone] REVIEWS/CLINICALS
--- NOTE | 2019-06-30 09:56 | NUR ---
RADIOLOGY DEPT. CHEST X-RAY DONE.-P.DYE
--- NOTE | 2019-06-30 10:20 | General Progress Note ---
Assessment/Plan Problem List: (1) HIV (human immunodeficiency virus infection) ICD Codes: B20 - Human immunodeficiency virus [HIV] disease SNOMED: 62478828 (2) Bronchopneumonia ICD Codes: J18.0 - Bronchopneumonia, unspecified organism SNOMED: 497673339 (3) Pneumonia ICD Codes: J18.9 - Pneumonia, unspecified organism SNOMED: 060298770 (4) Suspected COVID-19 virus infection ICD Codes: R68.89 - Other general symptoms and signs SNOMED: 855144457 Status: stable Assessment/Plan: Continue current treatment with IV antibiotics. CT scan of the chest reviewed. ID consult appreciated. isolation status deffered to infectious disease design center consultant. Patient will continue on his HIV meds. Continue oxygen and breathing treatments as needed. repeat cxr dc planning once able to switch to po abx Subjective ROS Limited/Unobtainable: No Constitutional: Reports: weakness HEENT: Reports: no symptoms Cardiovascular: Reports: no symptoms Respiratory: Reports: no symptoms Gastrointestinal/Abdominal: Reports: no symptoms Genitourinary: Reports: no symptoms Neurologic/Psychiatric: Reports: no symptoms Endocrine: Reports: no symptoms Hematologic/Lymphatic: Reports: no symptoms Allergies: Coded Allergies: NO KNOWN DRUG ALLERGIES (Verified Allergy, Unknown, 04/19/15) All Systems: reviewed and negative except above Subjective there were no overnight events. Patient denies any chest pain shortness of breath fevers chills or cough. 2 view chest x-ray is currently pending. Patient overall feels improved. Remains on IV antibiotics for pneumonia. No cough. Objective Last 24 Hour Vital Signs Date Time Temp Pulse Resp B/P (MAP) Pulse Ox O2 Delivery O2 Flow Rate FiO2 06/30/19 07:51 97 20 99 Room Air 21 99 20 96 06/30/19 04:00 98.1 77 17 141/86 (104) 98 06/30/19 01:21 84 18 99 Room Air 21 83 18 98 06/30/19 00:00 98.1 83 18 141/96 (111) 94 06/29/19 21:00 Room Air Room Air 06/29/19 20:30 74 18 99 Room Air 21 68 18 98 06/29/19 20:00 97.8 69 20 155/97 (116) 96 06/29/19 16:00 98.4 77 18 138/97 (111) 97 06/29/19 12:18 98.5 06/29/19 12:00 98.5 82 18 133/84 (100) 97 Intake and Output 06/29/19 06/30/19 19:00 07:00 Intake Total 500 ml 800 ml Balance 500 ml 800 ml Intake Oral 500 ml 800 ml # Voids 4 Height (Feet): 5 Height (Inches): 11.00 Weight (Pounds): 187 Objective General Appearance: WD/WN, alert Neck: supple Cardiovascular: regular rhythm Respiratory/Chest: lungs clear Abdomen: normal bowel sounds, non tender, soft, no organomegaly Edema: no edema noted Arm (L), no edema noted Arm (R), no edema noted Leg (L), no edema noted Leg (R), no edema noted Pedal (L), no edema noted Pedal (R), no edema noted Generalized Tru Gonzalez MD Jun 30, 2019 10:19
--- NOTE | 2019-06-30 11:33 | Diagnostic Imaging Report ---
Indication: Shortness of breath Technique: One view of the chest Comparison: 06/24/2019. Reference also made to chest CT dated 06/26/2019 Findings: Right upper lobe consolidation appears somewhat more extensive than on the prior exam, now occupying most of the right upper lobe. However, the consolidation appears slightly less dense with more air bronchograms and possible aerated lung now visible. The right costophrenic sulcus is somewhat obscured, small effusion likely. The left lung and pleural space are clear. The heart size is normal. Impression: Right upper lobe infiltrate appears slightly more extensive in the area but slightly less severe as compared to prior study 06/27/2019. Continued radiographic follow-up is recommended Suspect small right pleural effusion, new since previous exam
[2019-06-30 12:00] VITALS: BP 145/90
--- NOTE | 2019-06-30 12:15 | Infectious Diseases Prog Note ---
Assessment/Plan Assessment/Plan IMPRESSION: 1. Pneumonia.COVID19 X 2: negative 2. HIV. 3. Anemia. 4. Acute renal failure, resolving RECOMMENDATIONS: Continue ceftriaxone & azithromycin. Subjective ROS Limited/Unobtainable: Yes Constitutional: Denies: fever Allergies: Coded Allergies: NO KNOWN DRUG ALLERGIES (Verified Allergy, Unknown, 04/19/15) Objective Vital Signs Last 24 Hour Vital Signs Date Time Temp Pulse Resp B/P (MAP) Pulse Ox O2 Delivery O2 Flow Rate FiO2 06/30/19 09:00 Room Air Room Air 06/30/19 08:00 96.2 99 20 119/73 (88) 98 06/30/19 07:51 97 20 99 Room Air 21 99 20 96 06/30/19 04:00 98.1 77 17 141/86 (104) 98 06/30/19 01:21 84 18 99 Room Air 21 83 18 98 06/30/19 00:00 98.1 83 18 141/96 (111) 94 06/29/19 21:00 Room Air Room Air 06/29/19 20:30 74 18 99 Room Air 21 68 18 98 06/29/19 20:00 97.8 69 20 155/97 (116) 96 06/29/19 16:00 98.4 77 18 138/97 (111) 97 06/29/19 12:18 98.5 Height (Feet): 5 Height (Inches): 11.00 Weight (Pounds): 187 General Appearance: no acute distress HEENT: mucous membranes moist Respiratory/Chest: lungs clear Cardiovascular: normal rate Abdomen: soft, non tender Extremities: no edema Neurologic/Psychiatric: other - sleeping Current Medications Medications (Trade) Dose Ordered Sig/Tory Route PRN Reason Start Time Stop Time Status Last Admin Dose Admin Acetaminophen (Tylenol) 650 mg Q4H PRN ORAL Mild Pain (Pain Scale 1-3) 06/24/19 20:30 07/24/19 20:29 06/26/19 03:05 Acetaminophen (Tylenol) 650 mg Q4H PRN ORAL Temp >100.5 06/25/19 02:15 07/25/19 02:14 Acetaminophen/ Hydrocodone Bitart ([place] 10/325) 1 tab Q4H PRN ORAL For Pain (4-10) 06/26/19 13:45 07/03/19 13:44 06/29/19 23:54 Albuterol Sulfate (Proventil) 2.5 mg Q4H PRN HHN Shortness of Breath 06/27/19 18:15 07/02/19 18:14 Albuterol Sulfate (Proventil) 2.5 mg Q6HRT HHN 06/27/19 19:00 07/02/19 18:59 06/30/19 07:52 Ascorbic Acid (Vitamin C) 1,000 mg DAILY ORAL 06/26/19 09:00 07/26/19 08:59 06/30/19 08:35 Azithromycin (Zithromax) 500 mg DAILY ORAL 06/26/19 15:48 07/03/19 15:47 06/30/19 08:35 Ceftriaxone Sodium 1 gm/ Dextrose 55 ml @ 110 mls/hr Q24H IVPB 06/25/19 18:00 07/02/19 17:59 06/29/19 17:39 Clonazepam (KlonoPIN) 2 mg Q6H PRN ORAL anxiety 06/27/19 19:00 07/04/19 18:59 06/30/19 00:59 Guaifenesin/ Codeine Phosphate (Robitussin with codeine) 10 ml Q6H PRN ORAL For Cough 06/27/19 19:00 07/25/19 18:59 06/29/19 19:55 Heparin Sodium (Porcine) (Heparin 5000 units/ml) 5,000 units EVERY 12 HOURS SUBQ 06/24/19 22:00 08/08/19 21:59 06/27/19 09:56 Lorazepam (Ativan 2mg/ml 1ml) 1 mg QIDPRN PRN IV For Anxiety 06/26/19 22:15 07/03/19 22:14 Methocarbamol (Robaxin) 750 mg TID PRN ORAL Muscle Spasm 06/24/19 20:30 07/24/19 20:29 06/26/19 03:06 Multivitamins (Multivitamins) 1 tab DAILY ORAL 06/26/19 09:00 07/26/19 08:59 06/30/19 08:35 Ondansetron HCl (Zofran) 4 mg Q6H PRN IVP Nausea & Vomiting 06/24/19 20:30 07/24/19 20:29 06/26/19 03:06 Pantoprazole (Protonix) 40 mg DAILY@0630 ORAL 06/25/19 06:30 07/25/19 06:29 06/30/19 06:14 Patient Own Medication (Patient's Own Med) 1 ea DAILY ORAL 06/25/19 11:00 07/25/19 10:59 06/30/19 08:35 Sodium Chloride 1,000 ml @ 75 mls/hr [id number] IV 06/24/19 22:00 07/24/19 21:59 06/30/19 09:02 Zinc Sulfate (Zinc Sulfate) 220 mg DAILY ORAL 06/26/19 09:00 09/24/19 08:59 06/30/19 08:35 Aneudy Batista MD Jun 30, 2019 12:14
[2019-06-30] MEDS: guaiFENesin w/Codeine 5ml Liq ud ORAL PRN ×2 (12:19→23:31)
--- NOTE | 2019-06-30 15:35 | NUR ---
CASE MANAGEMENT:DISCHARGE PLANNING PAGED DR. LITTLE TO OBTAIN CLEARANCE FOR DC
--- NOTE | 2019-06-30 15:41 | NUR ---
CASE MANAGEMENT: REVIEW 06/30/19 SI: BRONCHOPNEUMONIA . UTI . HIV IMMUNODEFICIENCY 96.2 80 18 145/90 97% ON RA IS: IV NS@75ML/HR IV ROCEPHIN Q24HR ZITHROMAX PO QD ROBITUSSIN PO Q6HR/PRN PROVENTIL HHN Q6HR PROTONIX PO QD HEPARIN SQ BID PATIENTS OWN MEDS PO QD \: 3E MED SURG UNIT PLAN: CONT IV ABX DCP: DC HOME WHEN STABLE
[2019-06-30 16:00] VITALS: BP 136/96
[2019-06-30] MEDS: cefTRIAXone 1 GM in D5W 55 ML IVPB SCH (17:31)
--- NOTE | 2019-06-30 19:30 | NUR ---
NURSE NOTES: Received report from ANNABELLA Moeller. Rounding is done with outgoing nurse. Patient in bed, a/ox4, and able to known his need. IV site is intact and IV fluid is running. Denied any pain or distress at this time. Bed is on alarm, locked, and lowest position. Call light within reach. Will continue to monitor.
--- NOTE | 2019-06-30 19:43 | NUR ---
HAND-OFF: Report given to ANNABELLA Louise.
[2019-06-30 20:00] VITALS: BP 129/82
--- NOTE | 2019-06-30 20:59 | NUR ---
NURSE NOTES: Patient refused heparin. Explained regarding medication, but still refused.
[2019-07-01] VITALS: BP 141/86
[2019-07-01] MEDS: Albuterol ud Inhalation HHN SCH ×3 (01:24→13:10)
[2019-07-01 04:00] VITALS: BP 138/78
--- NOTE | 2019-07-01 07:31 | NUR ---
HAND-OFF: Report given to Antonia WINCHESTER. Patient in stable condition.
--- NOTE | 2019-07-01 07:40 | NUR ---
NURSE NOTES: Patient is in bed awake and able to verbalize needs. Stable. Denies pain or SOB. Patient instructed to use call light for assistance, verbalized understanding. Plan of care discussed with patient. Patient is in bed in locked and lowest position with call light within reach. All needs met at this time. WIll continue to monitor.
[2019-07-01 08:00] VITALS: BP 138/83
[2019-07-01] MEDS: Ascorbic Acid 500mg tab ORAL SCH (08:38)
[2019-07-01] MEDS: Patient's Own Med - Biktarvy ORAL SCH (08:38)
[2019-07-01] MEDS: Zinc Sulfate 220mg cap ORAL SCH (08:38)
[2019-07-01] MEDS: Azithromycin 250mg tab ORAL SCH (08:38)
[2019-07-01] MEDS: Heparin 5000 units/ml inj SUBQ SCH (09:00)
--- NOTE | 2019-07-01 09:42 | NUR ---
CASE MANAGEMENT: REVIEW 07/01/19 SI: SMALL RIGHT PLEURAL EFFUSION . BRONCHOPNEUMONIA . UTI . HIV IMMUNODEFICIENCY 98.2 95 18 138/83 97% ON RA IS: IV NS@75ML/HR IV ROCEPHIN Q24HR ZITHROMAX PO QD ROBITUSSIN PO Q6HR/PRN PROVENTIL HHN Q6HR PROTONIX PO QD ZINC SULFATE PO QD HEPARIN SQ BID PATIENTS OWN MEDS PO QD \: 3E MED SURG UNIT PLAN: CONT IV ABX CHEST X-RAY- NEW SMALL RIGHT PLEURAL EFFUSION CONSULT WITH ID TO SWITCH TO PO DCP: DC HOME WHEN STABLE
--- NOTE | 2019-07-01 10:13 | NUR ---
*-* INSURANCE *-* ALL AVAILABLE CLINICALS HAVE BEEN FAXED TO: [facility] L[facility]:DAMON # [phone] FAX#[phone] REVIEWS/CLINICALS
--- NOTE | 2019-07-01 10:45 | General Progress Note ---
Assessment/Plan Problem List: (1) HIV (human immunodeficiency virus infection) ICD Codes: B20 - Human immunodeficiency virus [HIV] disease SNOMED: 54219550 (2) Bronchopneumonia ICD Codes: J18.0 - Bronchopneumonia, unspecified organism SNOMED: 154961978 (3) Pneumonia ICD Codes: J18.9 - Pneumonia, unspecified organism SNOMED: 120100389 (4) Suspected COVID-19 virus infection ICD Codes: R68.89 - Other general symptoms and signs SNOMED: 508488678 Status: stable Assessment/Plan: IV antibiotics per ID. Consider converting to oral antibiotics. Will need outpatient repeat chest x-ray or CT scan. Will discuss with ID. Subjective ROS Limited/Unobtainable: No Constitutional: Reports: no symptoms HEENT: Reports: no symptoms Cardiovascular: Reports: no symptoms Respiratory: Reports: no symptoms Gastrointestinal/Abdominal: Reports: no symptoms Genitourinary: Reports: no symptoms Neurologic/Psychiatric: Reports: no symptoms Endocrine: Reports: no symptoms Hematologic/Lymphatic: Reports: no symptoms Allergies: Coded Allergies: NO KNOWN DRUG ALLERGIES (Verified Allergy, Unknown, 04/19/15) All Systems: reviewed and negative except above Subjective There have been no overnight events. Patient feels mostly improve. No fevers chills or cough. Chest x-ray results noted. Remains on IV antibiotics. Objective Last 24 Hour Vital Signs Date Time Temp Pulse Resp B/P (MAP) Pulse Ox O2 Delivery O2 Flow Rate FiO2 07/01/19 08:40 91 20 99 Room Air 21 94 20 97 07/01/19 08:08 Room Air Room Air 07/01/19 08:00 98.2 95 138/83 (101) 97 07/01/19 04:00 97.4 75 18 138/78 (98) 97 07/01/19 01:34 83 18 99 Room Air 21 07/01/19 01:24 82 18 96 Room Air 21 07/01/19 00:00 97.5 99 19 141/86 (104) 96 06/30/19 21:00 Room Air Room Air 06/30/19 20:10 80 18 99 Room Air 21 06/30/19 20:00 98.9 80 18 129/82 (98) 97 06/30/19 20:00 78 18 95 Room Air 21 06/30/19 16:00 98.2 79 20 136/96 (109) 97 06/30/19 13:31 86 20 98 Room Air 21 83 20 97 06/30/19 12:00 96.2 80 18 145/90 (108) 97 06/30/19 12:00 97.8 80 18 145/90 (108) 97 Intake and Output 06/30/19 07/01/19 19:00 07:00 Intake Total 500 ml 1065 ml Balance 500 ml 1065 ml Intake Oral 500 ml 240 ml IV Total 825 ml # Voids 2 2 Height (Feet): 5 Height (Inches): 11.00 Weight (Pounds): 187 Objective General Appearance: WD/WN, alert Neck: supple Cardiovascular: regular rhythm Respiratory/Chest: lungs clear Abdomen: normal bowel sounds, non tender, soft, no organomegaly Edema: no edema noted Arm (L), no edema noted Arm (R), no edema noted Leg (L), no edema noted Leg (R), no edema noted Pedal (L), no edema noted Pedal (R), no edema noted Generalized Tru Gonzalez MD Jul 01, 2019 10:45
[2019-07-01 12:00] VITALS: BP 134/86
--- NOTE | 2019-07-01 13:40 | NUR ---
CASE MANAGEMENT: NOTE PAGED DR LITTLE TO ASK IF PATIENT CAN BE CONVERTED TO PO AND DISCHARGE HOME COVID-19 NEGATIVE NO WBC ELEVATION
--- NOTE | 2019-07-01 14:08 | Infectious Diseases Prog Note ---
Assessment/Plan Assessment/Plan antibiotics : ceftriaxone, azithromycin A 1. pneumonia COVID 19 negative 4.07.10 2. leucocytosis improving 3. renal failure improving 4. HIV P 1. d/c ceftriaxone, azithromycin 2. start and continue po levoquin 500 mg daily 2 days 3. will follow up cultures Subjective Constitutional: Denies: fever, chills Respiratory: Reports: shortness of breath - mild, productive cough - mild Gastrointestinal/Abdominal: Denies: nausea, vomiting, diarrhea Musculoskeletal: Denies: pain Allergies: Coded Allergies: NO KNOWN DRUG ALLERGIES (Verified Allergy, Unknown, 04/19/15) Objective Vital Signs Last 24 Hour Vital Signs Date Time Temp Pulse Resp B/P (MAP) Pulse Ox O2 Delivery O2 Flow Rate FiO2 07/01/19 13:11 93 20 99 Room Air 21 91 20 96 07/01/19 12:00 98.5 94 18 134/86 (102) 99 07/01/19 08:40 91 20 99 Room Air 21 94 20 97 07/01/19 08:08 Room Air Room Air 07/01/19 08:00 98.2 95 138/83 (101) 97 07/01/19 04:00 97.4 75 18 138/78 (98) 97 07/01/19 01:34 83 18 99 Room Air 21 07/01/19 01:24 82 18 96 Room Air 21 07/01/19 00:00 97.5 99 19 141/86 (104) 96 06/30/19 21:00 Room Air Room Air 06/30/19 20:10 80 18 99 Room Air 21 06/30/19 20:00 98.9 80 18 129/82 (98) 97 06/30/19 20:00 78 18 95 Room Air 21 06/30/19 16:00 98.2 79 20 136/96 (109) 97 Height (Feet): 5 Height (Inches): 11.00 Weight (Pounds): 187 Respiratory/Chest: lungs clear Cardiovascular: normal rate, regular rhythm, no gallop/murmur Abdomen: soft, non tender Extremities: no edema Current Medications Medications (Trade) Dose Ordered Sig/Tory Route PRN Reason Start Time Stop Time Status Last Admin Dose Admin Acetaminophen (Tylenol) 650 mg Q4H PRN ORAL Mild Pain (Pain Scale 1-3) 06/24/19 20:30 07/24/19 20:29 06/26/19 03:05 Acetaminophen (Tylenol) 650 mg Q4H PRN ORAL Temp >100.5 06/25/19 02:15 07/25/19 02:14 Acetaminophen/ Hydrocodone Bitart ([place] 10325) 1 tab Q4H PRN ORAL For Pain (4-10) 06/26/19 13:45 07/03/19 13:44 06/29/19 23:54 Albuterol Sulfate (Proventil) 2.5 mg Q4H PRN HHN Shortness of Breath 06/27/19 18:15 07/02/19 18:14 Albuterol Sulfate (Proventil) 2.5 mg Q6HRT HHN 06/27/19 19:00 07/02/19 18:59 07/01/19 13:10 Ascorbic Acid (Vitamin C) 1,000 mg DAILY ORAL 06/26/19 09:00 07/26/19 08:59 07/01/19 08:38 Azithromycin (Zithromax) 500 mg DAILY ORAL 06/26/19 15:48 07/03/19 15:47 07/01/19 08:38 Ceftriaxone Sodium 1 gm/ Dextrose 55 ml @ 110 mls/hr Q24H IVPB 06/25/19 18:00 07/02/19 17:59 06/30/19 17:31 Clonazepam (KlonoPIN) 2 mg Q6H PRN ORAL anxiety 06/27/19 19:00 07/04/19 18:59 06/30/19 20:59 Guaifenesin/ Codeine Phosphate (Robitussin with codeine) 10 ml Q6H PRN ORAL For Cough 06/27/19 19:00 07/25/19 18:59 06/30/19 23:31 Heparin Sodium (Porcine) (Heparin 5000 units/ml) 5,000 units EVERY 12 HOURS SUBQ 06/24/19 22:00 08/08/19 21:59 06/27/19 09:56 Lorazepam (Ativan 2mg/ml 1ml) 1 mg QIDPRN PRN IV For Anxiety 06/26/19 22:15 07/03/19 22:14 Methocarbamol (Robaxin) 750 mg TID PRN ORAL Muscle Spasm 06/24/19 20:30 07/24/19 20:29 06/26/19 03:06 Multivitamins (Multivitamins) 1 tab DAILY ORAL 06/26/19 09:00 07/26/19 08:59 07/01/19 08:38 Ondansetron HCl (Zofran) 4 mg Q6H PRN IVP Nausea & Vomiting 06/24/19 20:30 07/24/19 20:29 06/26/19 03:06 Pantoprazole (Protonix) 40 mg DAILY@0630 ORAL 06/25/19 06:30 07/25/19 06:29 07/01/19 05:41 Patient Own Medication (Patient's Own Med) 1 ea DAILY ORAL 06/25/19 11:00 07/25/19 10:59 07/01/19 08:38 Sodium Chloride 1,000 ml @ 75 mls/hr [id number] IV 06/24/19 22:00 07/24/19 21:59 07/01/19 13:06 Zinc Sulfate (Zinc Sulfate) 220 mg DAILY ORAL 06/26/19 09:00 09/24/19 08:59 07/01/19 08:38 Hiro Alas MD Jul 01, 2019 14:08
--- NOTE | 2019-07-01 16:22 | NUR ---
NURSE NOTES: Patient discharged home as ordered. Stable. Denies pain or SOB. Patient was given thorough discharge instructions by RN, verbalized understanding. Written instructions also given to patient. All medication teaching given to patient, patient verbalized understanding. All medications given to patient, home medication returned to patient. Patient has all belongings. No IV access. Skin is c/d/i. Patient assisted into private vehicle by RN without incident.
[2019-07-02] MEDS ORDERED: Levofloxacin 500mg tab ORAL SCH (09:00)
--- NOTE | 2019-07-03 14:23 | Discharge Summary ---
Discharge Summary Discharge Summary _ DATE OF ADMISSION: 06/24/2019 DATE OF DISCHARGE: 07/01/2019 DISCHARGED BY: Dr. Tru Gonzalez CONSULTANTS: Dr. Hiro Alas BRIEF HOSPITAL COURSE: Patient is a 44-year-old male. He has history of HIV. He developed cough, congestion, fever and night sweats for several days. He had a test for covid at [facility], however, did not have the results back yet when he presented to ED. He had continued chest pain. He had a temperature of 103. He reported generalized body ache. He denied any recent travel. Denied abdominal pain, nausea, vomiting or diarrhea. Upon evaluation at ED, blood pressure was stable, heart rate was elevated to 116. Temperature was 99.8. He was saturating well on room air. Blood work showed leukocytosis with WBC of 17, hemoglobin 11, hematocrit 34. Sodium 135, potassium 4.0, chloride 97. BUN 21 and creatinine 1.9. Chest x-ray showed right upper lobe infiltrate. He was then admitted for evaluation of pneumonia, rule out Covid. He was admitted to telemetry. He was placed on isolation. He was continued on his home medications. He was given O2 support and nebulizer treatment. He was started empirically on vancomycin and ceftriaxone. CT scan of the chest showed right upper lobe pneumonia with consolidation. Vancomycin was discontinued. He was continued on ceftriaxone and azithromycin. Continued testing through [facility] was negative. In-house covid testing was likewise negative. Repeat chest x-ray showed improvement in right upper lobe infiltrate. Antibiotics were discontinued and patient was switched on p.o. Levaquin. Patient was eventually cleared for discharge. FINAL DIAGNOSES: Pneumonia Suspected covid 19 virus infection, with negative testing HIV Acute renal failure DISPOSITION: Patient was discharged home. DISCHARGE MEDICATIONS: Refer to Discharge Medication List. DISCHARGE INSTRUCTIONS: Follow-up in a week. I have been assigned to complete a discharge summary on this account, I was not involved with the patient's management.--KEITH Greene Jacqueline Robles NP Jul 03, 2019 14:23
--- NOTE | 2019-07-04 16:42 | NUR ---
*-* INSURANCE *-* DISCHARGE SUMMARY HAS BEEN FAXED TO: [facility]:DAMON # [phone] FAX#[phone] REVIEWS/CLINICALS
== END 2019-07-01 16:31 | disposition home or self-care (01) | DRG 892 ==
LOC: EDBD 16:31 → EMR 17:35 → EDBEDREQSVC 20:10 → EDBEDREQ 20:10 → 2E 21:57 → 3E 06-27 18:59
DX: J18.9 Pneumonia, unspecified organism (principal); N17.9 Acute kidney failure, unspecified; B20 Human immunodeficiency virus [HIV] disease; D64.9 Anemia, unspecified
CPT/HCPCS: 36415; 71045; 71250; 80048; 80053; 80202; 81003; 85007; 85025; 86140; 87086; 87635; 93005; 94640; 94664; 96361; 96365; 99285; J2405; J7030